=== PATIENT | male | born 1955 | race Caucasian/White ===

== ENCOUNTER 2019-02-22 05:30 | Day surgery (SDC) | payer OTHER ==
[~2019-02-22] VITALS: Ht 160 cm; Wt 104.1 kg
[2019-02-22] MEDS ORDERED: SODIUM CHLORIDE 0.9% 1000ML 1,000 ML IV ONE (05:43)
[2019-02-22 05:59] VITALS: BP 107/73
[2019-02-22] MEDS ORDERED: PROPOFOL 10 MG/ML 20ML VIAL IV ONE (07:14)
[2019-02-22 07:27] VITALS: BP 108/62
[2019-02-22 07:32] VITALS: BP 102/61
[2019-02-22 07:38] VITALS: BP 107/64
[2019-02-22 07:43] VITALS: BP 108/65
== END 2019-02-22 07:50 | disposition home or self-care (01) ==
LOC: ENDO 05:30 → DAH 05:30 → ENDO 07:50
PROVIDERS: ATTEND Internal Medicine
DX: K29.00 Acute gastritis without bleeding (principal); K31.6 Fistula of stomach and duodenum; K44.9 Diaphragmatic hernia without obstruction or gangrene; M19.90 Unspecified osteoarthritis, unspecified site; Z93.1 Gastrostomy status; Z86.73 Personal history of transient ischemic attack (TIA), and cerebral infarction without residual deficits; Z87.442 Personal history of urinary calculi; Z96.659 Presence of unspecified artificial knee joint; Z79.82 Long term (current) use of aspirin; Z79.899 Other long term (current) drug therapy; Z88.0 Allergy status to penicillin
CPT/HCPCS: 43235; 43999; A4215; A4221; A4222; A4223; A4606; A4615; A4649; A4663; J2704; J7030

== ENCOUNTER → 2019-03-23 | Outpatient (CLI) | payer OTHER ==
[~2019-03-23] MED LIST: ALBUTEROL SULFATE 0.083% 2.5 MG/3 ML INH IH ONE
== END | disposition home or self-care (01) ==
LOC: RESP 09:43
PROVIDERS: ATTEND Internal Medicine
DX: J44.9 Chronic obstructive pulmonary disease, unspecified (principal); Z87.891 Personal history of nicotine dependence
CPT/HCPCS: 94060; 94727; 94729

== ENCOUNTER → 2020-04-09 | Outpatient (CLI) | payer OTHER | END | disposition home or self-care (01) | LOC: RAH 16:22 | PROVIDERS: ATTEND Internal Medicine | DX: M16.0 Bilateral primary osteoarthritis of hip (principal); M19.012 Primary osteoarthritis, left shoulder; M19.011 Primary osteoarthritis, right shoulder; M25.511 Pain in right shoulder; M25.552 Pain in left hip; M25.551 Pain in right hip; M25.512 Pain in left shoulder | CPT/HCPCS: 73030; 73502 ==

== ENCOUNTER → 2020-07-16 | Outpatient (CLI) | payer OTHER ==
[~2020-07-16] VITALS: Ht 7.6 cm; Wt 132.0 kg
== END | disposition home or self-care (01) ==
LOC: DTH 13:11
PROVIDERS: ATTEND Internal Medicine
DX: E66.01 Morbid (severe) obesity due to excess calories (principal); I10 Essential (primary) hypertension; K76.0 Fatty (change of) liver, not elsewhere classified; E78.00 Pure hypercholesterolemia, unspecified; K21.9 Gastro-esophageal reflux disease without esophagitis; G47.33 Obstructive sleep apnea (adult) (pediatric); Z79.899 Other long term (current) drug therapy
CPT/HCPCS: 97802

== ENCOUNTER → 2020-08-20 | Outpatient (CLI) | payer OTHER | END | disposition home or self-care (01) | LOC: DTH 13:23 | PROVIDERS: ATTEND Surgery | DX: E66.01 Morbid (severe) obesity due to excess calories (principal); G47.33 Obstructive sleep apnea (adult) (pediatric); I10 Essential (primary) hypertension; K21.9 Gastro-esophageal reflux disease without esophagitis; E78.00 Pure hypercholesterolemia, unspecified; K76.0 Fatty (change of) liver, not elsewhere classified; F14.11 Cocaine abuse, in remission; E55.9 Vitamin D deficiency, unspecified; R73.01 Impaired fasting glucose | CPT/HCPCS: 97803 ==

== ENCOUNTER → 2020-09-10 | Outpatient (CLI) | payer OTHER | END | disposition home or self-care (01) | LOC: DTH 12:14 | PROVIDERS: ATTEND Surgery | DX: G47.33 Obstructive sleep apnea (adult) (pediatric) (principal); E66.01 Morbid (severe) obesity due to excess calories; M19.91 Primary osteoarthritis, unspecified site; K21.9 Gastro-esophageal reflux disease without esophagitis; E78.00 Pure hypercholesterolemia, unspecified; K76.0 Fatty (change of) liver, not elsewhere classified; F14.11 Cocaine abuse, in remission; E55.9 Vitamin D deficiency, unspecified; R73.01 Impaired fasting glucose | CPT/HCPCS: 97803 ==

== ENCOUNTER 2020-10-26 06:29 | Emergency (ER) | payer OTHER ==
[~2020-10-26] VITALS: Ht 160 cm; Wt 120.7 kg
[~2020-10-26 06:29] MED LIST changes: +AEC81 PO; -ALBUTEROL SULFATE 0.083% 2.5 MG/3 ML INH IH ONE; +FLUO40CA7 PO; +GABA300S PO; +PANT40TA54 PO; +ROSU20TA31 PO; +Vitamin D PO
[2020-10-26 07:19] VITALS: BP 141/64
[2020-10-26 07:46] LABS: BASOPHILS % (AUTO) 0.3 % (0.0-5.0); EOSINOPHILS % (AUTO) 0.5 % (0.0-8.0); HEMATOCRIT 37.7 % (42-54); LYMPHOCYTES % (AUTO) 7.5 % (21.0-51.0); MEAN CORPUSCULAR HEMOGLOBIN 29.8 pg (27.0-33.0); MEAN CORPUSCULAR HGB CONC 32.4 g/dL (32.0-36.0); MEAN CORPUSCULAR VOLUME 92.2 fL (79-99); MONOCYTES % (AUTO) 8.7 % (3.0-13.0); NEUTROPHILS % (AUTO) 82.5 % (40.0-77.0); PLATELET COUNT (AUTO) 264 K/uL (130-400); RED BLOOD CELL COUNT(AUTO) 4.09 MIL/uL (4.50-6.20); RED CELL DISTRIBUTION WIDTH 13.6 % (11.0-15.5); WHITE BLOOD COUNT (AUTO) 15.5 K/uL (4.8-10.8)
[2020-10-26 08:03] LABS: ALBUMIN 2.2 g/dL (3.5-5.0); BILIRUBIN,TOTAL 0.9 mg/dL (0.2-1.0); CREATININE 0.9 mg/dL (0.5-1.5); POTASSIUM 3.8 mmol/L (3.5-5.1); TOTAL PROTEIN, SERUM 7.2 g/dL (6.0-8.3)
[2020-10-26 09:14] VITALS: BP 138/70
[2020-10-26 09:53] VITALS: BP_SYST 158; BP_SYST 160; BP_SYST 174; BP_DIAS 180; BP_DIAS 60; BP_DIAS 62
== END 2020-10-26 09:58 | disposition home or self-care (01) ==
LOC: EDH 06:47
DX: K91.872 Postprocedural seroma of a digestive system organ or structure following a digestive system procedure (principal); E11.9 Type 2 diabetes mellitus without complications; E66.9 Obesity, unspecified; Z88.0 Allergy status to penicillin; Z79.899 Other long term (current) drug therapy; Z68.42 Body mass index [BMI] 45.0-49.9, adult
CPT/HCPCS: 36415; 80053; 83690; 85025

== ENCOUNTER → 2022-04-19 | Outpatient (CLI) | payer OTHER | END | disposition home or self-care (01) | LOC: SLP 20:15 | PROVIDERS: ATTEND Internal Medicine | DX: G47.33 Obstructive sleep apnea (adult) (pediatric) (principal); G47.31 Primary central sleep apnea | CPT/HCPCS: 95810 ==

== ENCOUNTER → 2022-04-22 | Outpatient (CLI) | payer OTHER | END | disposition home or self-care (01) | LOC: SLP 20:13 | PROVIDERS: ATTEND Internal Medicine | DX: G47.33 Obstructive sleep apnea (adult) (pediatric) (principal); G47.31 Primary central sleep apnea | CPT/HCPCS: 95811 ==

== ENCOUNTER → 2022-06-10 | Outpatient (CLI) | payer OTHER ==
[~2022-06-10] MED LIST changes: +IOHEXOL 350 MG/ML 100ML INFUS..BTL IV ONE
== END | disposition home or self-care (01) ==
LOC: RAH 10:20
PROVIDERS: ATTEND Internal Medicine Gastroenterology
DX: K43.9 Ventral hernia without obstruction or gangrene (principal); R10.12 Left upper quadrant pain; Z93.1 Gastrostomy status
CPT/HCPCS: 74170; Q9967

== ENCOUNTER 2023-10-01 13:00 | Inpatient (IN) | payer OTHER ==
[~2023-10-01] VITALS: Ht 160 cm; Wt 81.1 kg
[2023-10-01 11:57] LABS: BASOPHILS # (AUTO) 0.06 K/uL (0.00-0.20); BASOPHILS % (AUTO) 0.7 % (0.0-5.0); EOSINOPHILS # (AUTO) 0.16 K/uL (0.00-0.70); EOSINOPHILS % (AUTO) 1.8 % (0.0-8.0); HEMATOCRIT 46.6 % (42-54); IMMATURE GRANULOCYTE ABSOLUTE 0.03 K/uL (0-1); LYMPHOCYTES # (AUTO) 1.8 K/uL (1.0-4.8); MEAN CORPUSCULAR HEMOGLOBIN 29.4 pg (27.0-33.0); MEAN CORPUSCULAR HGB CONC 32.4 g/dL (32.0-36.0); MEAN CORPUSCULAR VOLUME 90.8 fL (79-99); MONOCYTES # (AUTO) 0.5 K/uL (0.1-1.0); NEUTROPHILS # (AUTO) 6.2 K/uL (1.8-7.7); NEUTROPHILS % (AUTO) 70.2 % (40.0-77.0); PLATELET COUNT (AUTO) 240 K/uL (130-400); RED BLOOD CELL COUNT(AUTO) 5.13 MIL/uL (4.50-6.20); RED CELL DISTRIBUTION WIDTH 13.1 % (11.0-15.5); WHITE BLOOD COUNT (AUTO) 8.8 K/uL (4.8-10.8)
[2023-10-01 12:11] LABS: CREATININE 0.8 mg/dL (0.5-1.3); POTASSIUM 4.9 mmol/L (3.5-5.1)
[~2023-10-01 13:00] MED LIST changes: -AEC81 PO; +FAMO40TA7 PO; -FLUO40CA7 PO; -GABA300S PO; -IOHEXOL 350 MG/ML 100ML INFUS..BTL IV ONE; +ROSU10TA72 PO; -ROSU20TA31 PO; +TAMS-1 PO; -Vitamin D PO
[2023-10-01 13:23] VITALS: BP 126/63; PULSE 52; RESP 18
[2023-10-01] MEDS ORDERED: [UNRECOGNIZED DRUG - OTHER] IL (13:25)
[2023-10-01] MEDS ORDERED: BUPR-93 PO (13:29)
[2023-10-01] MEDS ORDERED: stool softener PO (13:29)
[2023-10-06] VITALS (26 sets, daily range): BP systolic 114–161; BP diastolic 50–77; PULSE 49–71; RESP 14–18; O2SAT 98–99
[2023-10-06] MEDS ORDERED: GLYCOPYRROLATE 0.2 MG/ML 5 ML VIAL ONE (10:02)
[2023-10-06] MEDS ORDERED: PROPOFOL 10 MG/ML 20ML VIAL IV ONE (10:02)
[2023-10-06] MEDS ORDERED: LIDOCAINE PF 100MG/5ML (2%) SYRINGE 5ML ONE (10:02)
[2023-10-06] MEDS ORDERED: MIDAZOLAM HCL 1 MG/ML 2ML VIAL ONE (10:02)
[2023-10-06] MEDS ORDERED: FENTANYL CITRATE PF 50 MCG/1 ML 2ML VIAL ONE (10:03)
[2023-10-06] MEDS ORDERED: ROCURONIUM BROMIDE 10MG/1ML 5ML VL ONE ×3 (10:03→14:18)
[2023-10-06] MEDS: CLINDAMYCIN 900MG/6ML INJ IVPB ONE (10:25)
[2023-10-06] MEDS: BUPIVACAINE/PF 0.25% 30ML VIAL IJ ONE (10:44)
[2023-10-06] MEDS ORDERED: EPHEDRINE SULFATE 50 MG/ML AMPULE ONE (11:01)
[2023-10-06] MEDS ORDERED: NOREPINEPHRINE BITARTRATE 1 MG/1 ML ML IV ONE (11:53)
[2023-10-06] MEDS ORDERED: PHENYLEPHRINE HCL 10 MG/ML 1ML VIAL IV ONE (12:56)
[2023-10-06] MEDS ORDERED: DEXAMETHASONE SOD PHOSPHATE 10MG/ML 1ML VIAL ONE (12:57)
[2023-10-06] MEDS ORDERED: ONDANSETRON 4MG INJ ONE (14:45)
[2023-10-06] MEDS ORDERED: DiphenhydrAMINE HCL 50 MG/ML VIAL ONE (14:48)
[2023-10-06] MEDS ORDERED: PROCHLORPERAZINE 10MG/2ML INJ IV PRN (15:00)
[2023-10-06] MEDS ORDERED: ONDANSETRON 4MG INJ IVP PRN (15:00)
[2023-10-06] MEDS ORDERED: MORPHINE 2 MG SYG IVP PRN (15:00)
[2023-10-06] MEDS ORDERED: KETOROLAC 15MG/ML VIAL (15MG/ML) IV PRN (15:30)
[2023-10-06] MEDS: LACTATED RINGERS 1000ML 1,000 ML IV ONE (16:46)
[2023-10-06] MEDS: CLINDAMYCIN IVPB 900MG/50ML 50 ML IV ONE (16:46)
[2023-10-06] MEDS: HYDROMORPHONE 1 MG INJ ONE (16:47)
[2023-10-06] MEDS: LACTATED RINGERS 1000ML 1,000 ML IV SCH (17:28)
[2023-10-06] MEDS: HYDROCODONE/ACETAMINOPHEN 7.5/325 MG 15 ML UDCUP PO PRN (18:15)
[2023-10-06] MEDS: BUPROPION HCL 150 MG TABLET.SA PO SCH (20:22)
[2023-10-07] VITALS: BP 162/76; PULSE 62; RESP 18
[2023-10-07 00:16] VITALS: PULSE 65; RESP 18; O2SAT 97
[2023-10-07 04:00] VITALS: BP 140/67; PULSE 61; RESP 18
[2023-10-07 07:35] VITALS: BP 164/72; PULSE 54; RESP 20
[2023-10-07 10:30] VITALS: O2SAT 96
[2023-10-07] MEDS: ENOXAPARIN SODIUM 30 MG/0.3 ML SQ SCH (11:45)
[2023-10-07 12:00] VITALS: BP 165/67; PULSE 53; RESP 17
== END 2023-10-07 17:05 | disposition home or self-care (01) | DRG 328 ==
LOC: DAHIP 10-06 07:12 → 4BH 10-06 16:20
PROVIDERS: ADMIT Surgery; ATTEND Surgery
PROC: 0DNW4ZZ Release Peritoneum, Percutaneous Endoscopic Approach (ICD-10-PCS; 2023-10-06)
PROC: 0DJ08ZZ Inspection of Upper Intestinal Tract, Via Natural or Artificial Opening Endoscopic (ICD-10-PCS; 2023-10-06)
PROC: 0DB64ZZ Excision of Stomach, Percutaneous Endoscopic Approach (ICD-10-PCS; principal; 2023-10-06 09:58)
PROC: 0D164ZA Bypass Stomach to Jejunum, Percutaneous Endoscopic Approach (ICD-10-PCS; 2023-10-06 09:58)
DX: K21.9 Gastro-esophageal reflux disease without esophagitis (principal); I10 Essential (primary) hypertension; K66.0 Peritoneal adhesions (postprocedural) (postinfection); J44.9 Chronic obstructive pulmonary disease, unspecified; F41.9 Anxiety disorder, unspecified; F32.A Depression, unspecified; E66.9 Obesity, unspecified; Z68.31 Body mass index [BMI] 31.0-31.9, adult; Z96.653 Presence of artificial knee joint, bilateral; K22.70 Barrett's esophagus without dysplasia; Z86.73 Personal history of transient ischemic attack (TIA), and cerebral infarction without residual deficits; Z98.84 Bariatric surgery status
CPT/HCPCS: 36415; 43235; 80048; 85025; 86850; 86900; 86901; G0378; J1100; J1170; J1200; J1650; J2001; J2250; J2371; J2405; J2704; J3010; J3490; J7030; J7120; A4215; A4221; A4222; A4223; A4600; A4649; A4663; A4930; A6260; C1713; G0168; J0665

== ENCOUNTER → 2023-12-24 | Outpatient (CLI) | payer OTHER ==
[~2023-12-24] MED LIST changes: +BUPR-93 PO; +DIATR MEGLU/DIATRIZOATE SODIUM 30 ML BOTTLE ONE; +[UNRECOGNIZED DRUG - OTHER] IL; +stool softener PO
== END | disposition home or self-care (01) ==
LOC: RAH 08:33
PROVIDERS: ATTEND Internal Medicine Gastroenterology
DX: K21.9 Gastro-esophageal reflux disease without esophagitis (principal); K22.70 Barrett's esophagus without dysplasia; Z98.890 Other specified postprocedural states
CPT/HCPCS: 74240; Q9963

== ENCOUNTER → 2024-11-29 | Outpatient (CLI) | payer OTHER ==
[~2024-11-29] MED LIST changes: -DIATR MEGLU/DIATRIZOATE SODIUM 30 ML BOTTLE ONE; -TAMS-1 PO; +TAMS-55 PO
--- NOTE | 2024-11-29 13:30 | NUR ---
MBSS COMPLETED (OUTPATIENT). Aspiration during the swallow with mixed textures followed by cough response; Deep non-transient penetration during the swallow with mildly thick liquids, moderately thick liquids and pudding followed by throat clears. Recommend NPO, assisted alternate means of nutrition/hydration (e.g., PEG tube placement). DIAGNOSTIC FINDINGS: Pt presented with moderate to severe pharyngeal dysphagia characterized by decreased tongue base retraction; delayed pharyngeal response trigger and decreased hyo-laryngeal elevation/excursion evidenced by premature spillage to valleculae with spillover to pyriform sinuses; residue on base of tongue, valleculae and posterior pharyngeal wall and pooled residue in pyriform sinuses partially cleared with extra dry swallows; resulting in deep non-transient penetration during the swallow with pudding, mildly thick liquids via cup sip and moderately thick liquids via tsp followed by throat clear response; aspiration during the swallow with mixed textures followed by immediate cough response. NOTE: Pt had been complaining of s/s of aspiration. Pt with Hx of dysphagia post CVA 2019 followed by placement and removal of PEG tube. 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 STOVE INSTALLER reviewed results and recommendations with patient. STOVE INSTALLER educated patient on risks and consequences of aspiration. Speech therapy not warranted at this time. All questions answered. Addendum: 11/29/[address]IS LAWSON Amended: Links added.
--- NOTE | 2024-11-29 14:29 | HMCIMG ---
MODIFIED BARIUM SWALLOW W CINE REASON: Dysphagia, unspecified/Feeding difficulties, unspecified/oropharyngeal phas FINDINGS: Fluoroscopic assistance was provided to the speech pathologist while performing examination. For findings and dietary recommendations, refer to speech pathologist's report. FLUORO TIME: 2.5 minutes IMPRESSION: Modified barium swallow as described.
== END | disposition home or self-care (01) ==
LOC: RAH 12:16
PROVIDERS: ATTEND Internal Medicine Gastroenterology
DX: R13.10 Dysphagia, unspecified (principal); R63.30 Feeding difficulties, unspecified; R13.12 Dysphagia, oropharyngeal phase
CPT/HCPCS: 74230; 92611

== ENCOUNTER 2024-12-29 07:29 | Inpatient (IN) | payer OTHER ==
[2024-12-28 14:31] VITALS: BP 134/68; PULSE 49; RESP 16; TEMP 98.4
[2024-12-28 14:37] LABS: IMMATURE GRANULOCYTE ABSOLUTE 0.05 K/uL (0-1); NUCLEATED RED BLOOD CELLS 0.0 % (0.0-0.19); PLATELET COUNT (AUTO) 251 K/uL (130-400); RED BLOOD CELL COUNT(AUTO) 4.53 MIL/uL (4.50-6.20); RED CELL DISTRIBUTION WIDTH 13.2 % (11.0-15.5); WHITE BLOOD COUNT (AUTO) 8.5 K/uL (4.8-10.8)
[2024-12-28 14:42] LABS: CREATININE 0.9 mg/dL (0.5-1.3); GLOMERULAR FILTR. RATE CALC 91.0 mL/min (>90); GLUCOSE,RANDOM 113.0 mg/dL (70-105); SODIUM SERUM 141.0 mmol/L (136-145); UREA NITROGEN, BLOOD 21.0 mg/dL (7-18)
[2024-12-28 14:59] LABS: INR 1.05 (0.85-1.15)
--- NOTE | 2024-12-28 16:30 | NUR ---
RE: EKG EKG RESULTS REPORTED TO DR LOPEZ, NO NEW ORDERS RECEIVED.
[~2024-12-29] VITALS: Ht 160 cm; Wt 67.1 kg
[2024-12-29] VITALS (31 sets, daily range): BP systolic 111–140; BP diastolic 56–70; PULSE 48–82; RESP 12–20; TEMP 97.2–98.4; O2SAT 98
--- NOTE | 2024-12-29 06:29 | EKG ---
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: [id number] : 1955 Requested By: HITESH LUCAS Order Number: [id number] Reading MD: Hitesh Carlos Measurements Intervals [place] Rate: 48 P: 35 NH: 229 QRS: -16 QRSD: 87 T: 31 QT: 423 QTc: 380 Interpretive Statements Sinus bradycardia Borderline prolonged NH interval Borderline ST elevation, anterior leads Possible septal infarct vs lead placement, not present on EKG 10/15/2020 Compared to ECG 10/15/2020 11:25:39 ST (T wave) deviation now present Sinus rhythm no longer present Left-axis deviation no longer present Electronically Signed On 12-30-2024 12:19:53 CDT by Hitesh Carlos Please click the below link to view image of tracing.
[~2024-12-29 07:29] MED LIST changes: +ASPI-1443 PO; -BUPR-93 PO; +ERGO500093 PO; +FLUO40CA49 PO; +FOLI1 PO; +MVIT PO; +TOPI-257 PO; -[UNRECOGNIZED DRUG - OTHER] IL; -stool softener PO
[2024-12-29] MEDS: CLINDAMYCIN IVPB 900MG/50ML 50 ML IV ONE (07:55)
[2024-12-29] MEDS: LACTATED RINGERS 1000ML 1,000 ML IV ONE (08:14)
[2024-12-29] MEDS ORDERED: LIDOCAINE PF 100MG/5ML (2%) SYRINGE 5ML ONE ×2 (08:23→08:25)
[2024-12-29] MEDS ORDERED: SUCCINYLCHOLINE CHLORIDE 20 MG/ML 10 ML VIAL ONE (08:24)
[2024-12-29] MEDS ORDERED: GLYCOPYRROLATE 0.2 MG/ML 5 ML VIAL ONE (08:24)
[2024-12-29] MEDS ORDERED: NEOSTIGMINE METHYLSULFATE 1MG/ML IV ONE (08:24)
[2024-12-29] MEDS: CLINDAMYCIN 900MG/6ML INJ IV ONE (08:30)
[2024-12-29] MEDS ORDERED: ATROPINE 1MG SYG IVP ONE (08:33)
[2024-12-29] MEDS: ENOXAPARIN SODIUM 30 MG/0.3 ML SQ SCH (10:30)
[2024-12-29] MEDS ORDERED: PROCHLORPERAZINE 10MG/2ML INJ IV PRN (10:30)
--- NOTE | 2024-12-29 12:45 | NUR ---
PT ARRIVED TO FLOOR VIA BED. PT AOX4. PT DENIES ANY PAIN AT THE MOMENT. DRESSING PLACE TO PEG TUBE SITE. BLEEDING NOTED. BED POSITION TO LOWEST POSITION CALL LIGHT WITH IN REACH.
--- NOTE | 2024-12-29 13:59 | OP ---
Operative Note: DATE OF PROCEDURE: 12/29/24 SURGEON: HITESH LUCAS MD CARPENTER: [] ANESTHESIA: General and local ANESTHESIOLOGIST/CASTING MACHINE SERVICE OPERATOR[place] [facility] [place] PREOPERATIVE DIAGNOSIS: History of gastric bypass, history of stroke, difficulty with the p.o. intake, aspiration risk, in need of nutritional support POSTOPERATIVE DIAGNOSIS: As above SYNOPSIS: Gastrostomy tube placed surgically after lysis of adhesions with no evidence of complication PROCEDURE: Robotic assisted gastrostomy tube placement into remnant stomach, 16 German with 15 cc balloon ESTIMATED BLOOD LOSS: Minimal, less than 30 cc INDICATIONS: As above DESCRIPTION OF PROCEDURE: After standard precautions and preparations were undertaken a Veress needle and optical trocar were used to enter the abdominal cavity. All other instruments were placed under direct vision. The robotic system was docked in the standard fashion. My partner began passing the EGD scope down into the patient's gastric pouch and through the Clint limb to appropriately allowed me to identify anatomy while I remained at the robotic console. I was able to use this to identify the gastric bypass anatomy and began lysing adhesions to expose the remnant stomach. The EGD demonstrated no signs of obstruction to flow from the esophagus to the gastric pouch to the Clint limb. We identified the Clint limb which was appropriately anastomosis and the jejunal jejunostomy which was also appropriate with no signs of any significant postsurgical abnormality. With the remnant stomach identified stay sutures were placed for allowing for proper handling of the tissue. Monopolar cautery was used to enter into the stomach. This was verified by direct visualization. The gastrostomy tube was passed under the left costal margin through the abdominal wall and into the abdominal cavity. The tube was inserted through the gastrotomy and a series of pursestring sutures were used to fix the tube in place the balloon was inflated to the full 15 cc the tube was tested to ensure easy flow and aspiration. An omental patch was placed around the tube entry site. The rubber/silicone collar around the tube was sutured with nylon suture for stabilization and the case was ended after verifying all instrument counts were correct including needles and sponges. HITESH LUCAS MD Dec 29, 2024 13:59
--- NOTE | 2024-12-29 14:01 | PN ---
GENERAL SURGERY PROGRESS NOTE Date/Time Patient Seen: [ 12/29/2024 at 10:30 a.m.] Problem List: [ ] Interval History: [Postop day 0. Pain tolerable with p.r.n. medication. ] Current Medications Medications (Trade) Dose Ordered Sig/Armando Route Start Time Stop Time Status Last Admin Dose Admin Enoxaparin Sodium (Lovenox) 30 mg Q12H SQ 12/29/24 10:30 01/28/25 10:29 Lactated Ringer's 1,000 ml @ 150 mls/hr Q6H40M IV 12/29/24 10:30 01/28/25 10:29 Physical Examination: GENERAL: [No acute distress.] ABD: [Incisions clean, dry and intact, Dermabond in place Vital Signs (last 8hr) Date Time Temp Pulse Resp B/P (MAP) Pulse Ox O2 Delivery O2 Flow Rate FiO2 12/29/24 12:05 57 15 140/63 99 Nasal Cannula 2.0 12/29/24 11:50 58 16 135/67 99 Nasal Cannula 2.0 12/29/24 11:35 55 16 125/65 100 Nasal Cannula 2.0 12/29/24 11:20 56 17 124/58 100 Nasal Cannula 2.0 12/29/24 11:15 55 16 129/63 100 Nasal Cannula 2.0 12/29/24 11:10 57 16 136/60 100 Nasal Cannula 2.0 12/29/24 11:05 53 15 130/56 100 Nasal Cannula 2.0 12/29/24 11:00 54 15 133/58 100 Nasal Cannula 2.0 12/29/24 10:55 55 18 111/56 100 Nasal Cannula 2.0 12/29/24 10:50 57 18 116/58 100 Nasal Cannula 2.0 12/29/24 10:45 58 15 127/59 100 Nasal Cannula 2.0 12/29/24 10:40 63 18 130/60 100 Nonrebreathing Mask 10.0 100 12/29/24 10:35 65 16 128/58 100 Nonrebreathing Mask 10.0 100 12/29/24 10:30 67 14 125/56 100 Nonrebreathing Mask 10.0 100 12/29/24 10:25 70 12 119/59 100 Nonrebreathing Mask 10.0 100 12/29/24 10:20 97.5 82 12 124/60 100 Nonrebreathing Mask 10.0 100 12/29/24 07:45 97.2 48 16 134/67 99 Room Air Laboratory: [ ] Hematology Labs: Test 12/28/24 14:12 Range/Units White Blood Count 8.5 4.8-10.8 K/uL Red Blood Count 4.53 4.50-6.20 MIL/uL Hemoglobin 14.5 14.0-18.0 g/dL Hematocrit 42.9 42-54 % Mean Corpuscular Volume 94.7 79-99 fL Mean Corpuscular Hemoglobin 32.0 27.0-33.0 pg Mean Corpuscular Hemoglobin Concent 33.8 32.0-36.0 g/dL Red Cell Distribution Width 13.2 11.0-15.5 % Platelet Count 251 130-400 K/uL Mean Platelet Volume 8.8 7.5-10.5 fL Immature Granulocyte % (Auto) 0.6 0-1 % Neutrophils (%) (Auto) 67.3 40.0-77.0 % Lymphocytes (%) (Auto) 23.3 21.0-51.0 % Monocytes (%) (Auto) 5.6 3.0-13.0 % Eosinophils (%) (Auto) 2.6 0.0-8.0 % Basophils (%) (Auto) 0.6 0.0-5.0 % Neutrophils # (Auto) 5.8 1.8-7.7 K/uL Lymphocytes # (Auto) 2.0 1.0-4.8 K/uL Monocytes # (Auto) 0.5 0.1-1.0 K/uL Eosinophils # (Auto) 0.22 0.00-0.70 K/uL Basophils # (Auto) 0.05 0.00-0.20 K/uL Absolute Immature Granulocyte (auto 0.05 0-1 K/uL Nucleated Red Blood Cells 0.0 0.0-0.19 % Chemistry Labs: Test 12/28/24 14:12 Range/Units Sodium Level 141 136-145 mmol/L Potassium Level 4.5 3.5-5.1 mmol/L Chloride Level 106 101-111 mmol/L Carbon Dioxide Level 29 21-32 mmol/L Blood Urea Nitrogen 21 H 7-18 mg/dL Creatinine 0.9 0.5-1.3 mg/dL Glomerular Filtration Rate Calc 91 >90 mL/min Random Glucose 113 H 70-105 mg/dL Total Calcium 8.8 8.5-10.1 mg/dL Coagulation Labs: Test 12/28/24 14:12 Range/Units Prothrombin Time 11.1 9.6-11.6 SEC Prothromb Time International Ratio 1.05 0.85-1.15 Activated Partial Thromboplast Time 28.9 26.3-35.5 SEC Diagnostics / Radiology: [Copy/Paste Echos/Imaging Report here] Impression and Plan: [Plan is for discharge home in the next day or two as long as pain tolerable, patient ambulatory and he has been educated on G-tube use and maintenance. ] PRIETO LUCAS Dec 29, 2024 14:01
[2024-12-29] MEDS ORDERED: DIATR MEGLU/DIATRIZOATE SODIUM 30 ML BOTTLE ONE (14:44)
--- NOTE | 2024-12-29 16:00 | HMCIMG ---
ABD 1VW REASON: Gastrostomy tube placement in remnant stomach, pt with hx of gastric bypass FINDINGS: Patient was given 30 cc of Gastrografin prior to the abdomen x-ray. Single image of the abdomen was obtained. There is a oral contrast seen in the stomach and feeding gastrostomy tube demonstrated no leak of contrast within the abdomen and these into duodenum and upper jejunum. Bowel gas pattern is normal. Bones and soft tissues appear unremarkable. There are no abnormal calcifications. There is no evidence of foreign body. IMPRESSION: 1. 3 feeding gastrostomy tube is in the body of the stomach in satisfactory position with no leak identified..
[2024-12-29] MEDS: LACTATED RINGERS 1000ML 1,000 ML IV SCH (17:14)
[2024-12-30] VITALS (7 sets, daily range): BP systolic 116–167; BP diastolic 56–69; PULSE 49–64; RESP 17–18; TEMP 98–98.5; O2SAT 96–98
[2024-12-30] MEDS: MULTIVITAMIN TABLET PO SCH (09:00)
[2024-12-30] MEDS: ASPIRIN 81 MG EC TAB PO SCH (09:00)
[2024-12-30] MEDS: ERGOCALCIFEROL (VITAMIN D2) 50,000 UNIT CAPSULE PO SCH (09:00)
--- NOTE | 2024-12-30 10:33 | NUR ---
DCP:HOME Pt currently lives with his sps Eugenie Garzon [phone] in their home. Pt does not have any DME, home health, or provider services. Pt states that he is able to complete ADLs independently. PCP is Dr. Martin Pollard and uses [facility] for any RX needs. At [place] pt will want to go home and family can assist with transportation. Addendum: 12/30/24 at 1035 by SAQIB CALDERON SS Amended: Links added.
--- NOTE | 2024-12-30 11:45 | NUR ---
SHEPPARD CATHETER 16 FR INSERTED ASEPTICALLY AT THIS TIME PER MD ORDER DRAINING CLEAR URINE TO COLLECTION BAG.
--- NOTE | 2024-12-30 16:06 | NUR ---
CM NOTE/AMERITA CM spoke to patient and spouse regarding d/c planning. Explained orders for home health to assist with tube feedings. Patient reports he has had tube feedings in the past and feels comfortable administering them himself. Spouse states she can also assist. Patient declined home health services at this time. CM also discussed arrangements for tube feedings. CM obtained RUT for any in network specialty pharmacy. CM verified delivery address: [address] [place] [phone]. CM to fax referral to [facility] and follow up.
--- NOTE | 2024-12-30 16:24 | NUR ---
Nutritional Note: Chart, meds, and labs Reviewed. Pt was seen by as an outpatient by PYRIDINE RECOVERY OPERATOR s/p MBSS 11/29/2024 Recommend NPO, intermediate card tender alternate means of nutrition/hydration (e.g., PEG tube placement). Pt s/p PEG and requiring TF recommendations Estimated energy needs: 1500-1800kcal, 60-70gm pro/day 1500-1800ml H20/day Recommend: -Jevity 1.5 total volume/day 1185ml/24hrs or 5 cans/day to be divided as tolerated with 100ml H20 flush before and after each feeding. Pt with hx of gastric bypass. TF to provide 1775kcal, 76gm/pro day, 900ml with at least 1000ml H20 flush/day. - Electrolyte replacements per protocol -Monitor feeding tolerance, %, wt, and labs -If No BM >3days consider bowel stimulant. -Consider appetite stimulant if intake remains <75%for 3 days. -Schedule outpatient RD f/u for long-term nutrition care. - Notify RD if additional nutrition concerns arise. SEE RD Nutritional Assessment for additional assessment information. Addendum: 12/30/24 at [address] Amended: Links added.
--- NOTE | 2024-12-30 16:30 | NUR ---
SPEECH TRIGGER COMPLETED / DYSPHAGIA Pt IS A 69 Y.O. MALE ADMITTED SECONDARY TO S/P G-TUBE PLACEMENT. Pt HAS A PAST MEDICAL HISTORY SIGNIFICANT FOR DYSPHAGIA. Pt WAS SEEN BY SPEECH THERAPY OUTPATIENT FOR [facility] [place] ON 11/29/2024 WHERE PATIENT PRESENTED WITH ASPIRATION DURING THE SWALLOW WITH MIXED TEXTURES FOLLOWED BY COUGH RESPONSE AND DEEP NON-TRANSIENT PENETRATIONS DURING THE SWALLOW WITH PUDDING AND MILDLY, MODERATELY, AND EXTREMELY THICK LIQUIDS FOLLOWED BY THROAT CLEARS. RECOMMENDATIONS FOR NPO, RETIREMENT ALTERNATE MEANS OF NUTRITION/HYDRATION (e.g. PEG TUBE PLACEMENT) WERE MADE AT THAT TIME. Pt NOW ADMITTED TO HAVE PEG TUBE PLACEMENT. SPEECH THERAPY NOT WARRANTED AT THIS TIME. 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 ALL QUESTIONS ANSWERED. Addendum: 12/30/[address]IS LAWSON Amended: Links added.
--- NOTE | 2024-12-30 17:52 | PN ---
GENERAL SURGERY PROGRESS NOTE Date/Time Patient Seen: [ 12/30/2024 / 1700] Problem List: [ History of gastric bypass, history of stroke, difficulty with the p.o. intake, aspiration risk, in need of nutritional support] Interval History: [Postop day 1. Patient is s/p gastrostomy tube placed surgically after lysis of adhesions. Patient's VSS. Patient is awake and alert and oriented resting in bed. Pain is tolerable with p.r.n. medication. Patient pending the initial tube feedings. Patient has been able to intake small amounts of yogurt and jello without any difficulties. His bilateral breath sounds are clear. Abdomen is soft and not distended. His incisions are dry and intact open to air. G-tube in place without any leaks. Oriented to plan of care plan for discharge in the next 24 hours if tolerating feedings. Patient agreed.] Current Medications Medications (Trade) Dose Ordered Sig/Armando Route Start Time Stop Time Status Last Admin Dose Admin Aspirin (Aspirin 81mg Ec Tab) 81 mg QODAY PO 12/30/24 09:00 01/29/25 08:59 Atorvastatin Calcium (LIPItor 40MG) 40 mg HS PO 12/30/24 21:00 01/29/25 20:59 Enoxaparin Sodium (Lovenox) 30 mg Q12H SQ 12/29/24 10:30 01/28/25 10:29 12/30/24 15:17 30 MG Ergocalciferol (Drisdol) 50,000 unit QWEEK PO 12/30/24 09:00 01/29/25 08:59 Fluoxetine HCl (FLUoxetine HCL 20 MG CAPSULE) 40 mg HS PO 12/30/24 21:00 01/29/25 20:59 Folic Acid (FOLic ACID 1 MG TABLET) 1 mg DAILY PO 12/30/24 09:00 01/29/25 08:59 Lactated Ringer's 1,000 ml @ 100 mls/hr Q10H IV 12/29/24 10:30 01/28/25 10:29 12/30/24 15:18 150 MLS/HR Miscellaneous Medication (Famotidine ) 40 mg HS PO 12/30/24 21:00 12/30/24 07:58 DC Multivitamins Therapeutic (Multivitamin Tablet) 1 tab DAILY PO 12/30/24 09:00 01/29/25 08:59 Pantoprazole Sodium (PROTonix 40MG TAB) 40 mg AM PO 12/30/24 09:00 01/29/25 08:59 Tamsulosin HCl (FloMAX) 0.4 mg HS PO 12/30/24 21:00 01/29/25 20:59 Topiramate (TopaMAX) 25 mg BID PO 12/30/24 09:00 01/29/25 08:59 Physical Examination: GENERAL: [No acute distress.] HEAD: [Normal with no signs of head trauma.] EYES: [PERRLA, EOMI, conjunctiva and sclera normal.] ENT: [Hearing grossly intact, normal oropharynx.] LUNGS: [Clear breath sounds bilaterally.] HEART: [Normal S1 and S2 without mumurs, gallop or rub.] VASC: [Peripheral pulses +2 bilaterally.] ABD: [Bowel sounds normal, soft, nontender, no masses, no organomegaly. No audible bruits. Peg tube in place without any leaks] : [Not examined] LYMPH: [No lymphadenopathy noted.] EXT: [No clubbing, cyanosis or edema.] SKIN: [No rashes or lesions noted.] NEURO: [Awake, alert, and oriented x3. No focal sensory or strength deficits noted.] Vital Signs (last 8hr) Date Time Temp Pulse Resp B/P (MAP) Pulse Ox O2 Delivery O2 Flow Rate FiO2 12/30/24 15:35 98.4 52 17 139/69 97 Room Air 12/30/24 11:38 98.1 49 17 167/69 99 Room Air Laboratory: [ ] Diagnostics / Radiology: [Copy/Paste Echos/Imaging Report here] Impression and Plan: [History of gastric bypass History of CVA, Oropharyngeal dysphagia In need of nutritional support Plan Initiate G-tube feedings. Encourage ambulation Aspiration precautions Plan is for discharge home in the next day or two as long as pain tolerable, patient ambulatory and he has been educated on G-tube use and maintenance. Please call with questions, concerns, and/or change in clinical status. ] KAREN WILSON NP Dec 30, 2024 17:52
[2024-12-30] MEDS ORDERED: NON-FORMULARY MEDICATION 1 EACH (Famotidine 40 MG) PO SCH (21:00)
[2024-12-31] VITALS (8 sets, daily range): BP systolic 61–165; BP diastolic 57–73; PULSE 55–73; RESP 18–20; TEMP 97.7–99.3; O2SAT 97–98
--- NOTE | 2024-12-31 00:49 | NUR ---
NURSING NOTES PATIENT REFUSED FEEDING FOR 2299 STATES "HE'S NOT HUNGRY AND STILL FEELS A LITTLE BIT FULL, I'LL WAIT 'TILL NEXT FEEDING IS DUE". WILL CONTINUE TO MONITOR PATIENT.
[2024-12-31] MEDS ORDERED: PHARMACY COMMUNICATION MISC SCH (03:00)
[2024-12-31] MEDS ORDERED: COMPOUND IV REFRIGERATED 1 EACH IVSOLN MISC PRN (08:30)
--- NOTE | 2024-12-31 10:13 | PN ---
GENERAL SURGERY PROGRESS NOTE Date/Time Patient Seen: [ ] Problem List: [ History of gastric bypass, history of stroke, difficulty with the p.o. intake, aspiration risk, in need of nutritional support] Interval History: [Postop day 1. Patient is s/p gastrostomy tube placed surgically after lysis of adhesions. Patient's VSS. Patient is awake and alert and oriented resting in bed. Pain is tolerable with p.r.n. medication. Patient pending the initial tube feedings. Patient has been able to intake small amounts of yogurt and jello without any difficulties. His bilateral breath sounds are clear. Abdomen is soft and not distended. His incisions are dry and intact open to air. G-tube in place without any leaks. Oriented to plan of care plan for discharge in the next 24 hours if tolerating feedings. Patient agreed.] 12/31/24: No acute events overnight. Patient's VSS. Patient receiving instructions on Gtube feeding. Patient reports having 3-4 bms after morning fe eding. BBS clear. Abd Soft. Plan for discharge in am. Patient agreed. Current Medications Medications (Trade) Dose Ordered Sig/Armando Route Start Time Stop Time Status Last Admin Dose Admin Aspirin (Aspirin 81mg Ec Tab) 81 mg QODAY PO 12/30/24 09:00 01/29/25 08:59 Atorvastatin Calcium (LIPItor 40MG) 40 mg HS PO 12/30/24 21:00 01/29/25 20:59 12/30/24 23:57 40 MG Enoxaparin Sodium (Lovenox) 30 mg Q12H SQ 12/29/24 10:30 01/28/25 10:29 12/31/24 09:42 30 MG Ergocalciferol (Drisdol) 50,000 unit QWEEK PO 12/30/24 09:00 01/29/25 08:59 Fluoxetine HCl (FLUoxetine HCL 20 MG CAPSULE) 40 mg HS PO 12/30/24 21:00 01/29/25 20:59 12/30/24 23:57 40 MG Folic Acid (FOLic ACID 1 MG TABLET) 1 mg DAILY PO 12/30/24 09:00 12/31/24 02:44 DC Folic Acid (FolVITE 5 MG/ML VIAL) 1 mg DAILY IM 12/31/24 09:00 01/30/25 08:59 12/31/24 09:42 1 MG Lactated Ringer's 1,000 ml @ 100 mls/hr Q10H IV 12/29/24 10:30 01/28/25 10:29 12/31/24 02:01 100 MLS/HR Miscellaneous Medication (Famotidine ) 40 mg HS PO 12/30/24 21:00 12/30/24 07:58 DC Multivitamins Therapeutic (Multivitamin Tablet) 1 tab DAILY PO 12/30/24 09:00 01/29/25 08:59 12/31/24 09:42 1 TAB Pantoprazole Sodium (PROTonix 40MG INJ) 40 mg AM IVP 12/31/24 09:00 01/30/25 08:59 12/31/24 09:43 40 MG Pantoprazole Sodium (PROTonix 40MG TAB) 40 mg AM PO 12/30/24 09:00 12/31/24 02:40 DC Pharmacy Profile Note (Pharmacy Communication) 1 each ONCE MISC 12/31/24 03:00 12/31/24 02:48 DC Tamsulosin HCl (FloMAX) 0.4 mg HS PO 12/30/24 21:00 01/29/25 20:59 12/30/24 23:57 0.4 MG Topiramate (TopaMAX) 25 mg BID PO 12/30/24 09:00 01/29/25 08:59 12/31/24 09:42 25 MG Physical Examination: GENERAL: [No acute distress.] HEAD: [Normal with no signs of head trauma.] EYES: [PERRLA, EOMI, conjunctiva and sclera normal.] ENT: [Hearing grossly intact, normal oropharynx.] NECK: [Supple without JVD. There is no tenderness, lymphadenopathy, or masses. No thyromegaly. Normal carotid upstrokes without bruits.] LUNGS: [Clear breath sounds bilaterally. There are right basilar rales one third of the way up the chest. No wheezes, or rhonchi.] HEART: [Normal rate and rhythm. Normal S1 and S2 without mumurs, gallop or rub.] VASC: [Peripheral pulses +2 bilaterally.] ABD: [Bowel sounds normal, soft, nontender, no masses, no organomegaly. No audible bruits.] : [Not examined] LYMPH: [No lymphadenopathy noted.] EXT: [No clubbing, cyanosis or edema.] SKIN: [No rashes or lesions noted.] NEURO: [Awake, alert, and oriented x3. No focal sensory or strength deficits noted.] Vital Signs (last 8hr) Date Time Temp Pulse Resp B/P (MAP) Pulse Ox O2 Delivery O2 Flow Rate FiO2 12/31/24 07:56 97.7 66 18 113/61 97 Room Air 12/31/24 03:58 99.3 65 18 126/64 95 Room Air Laboratory: [ ] Diagnostics / Radiology: [Copy/Paste Echos/Imaging Report here] Impression and Plan: [History of gastric bypass History of CVA, Oropharyngeal dysphagia In need of nutritional support Plan Initiate G-tube feedings. Patient will be requiring Gtube feedings longer that 90 days. He will f/u as outpatient and will be reevaluated. Provide patient and family member instruction on feeding Encourage ambulation Aspiration precautions Plan is for discharge home in the next day or two as long as pain tolerable, patient ambulatory and he has been educated on exterminator helper G-tube use and maintenance. Please call with questions, concerns, and/or change in clinical status. ] KAREN WILSON NP Dec 31, 2024 10:13
--- NOTE | 2024-12-31 13:21 | NUR ---
CM NOTE CALL MADE TO [facility] REP WITH [facility] [phone]. AND STATES DID RECEIVE REFERRAL BUT DOES DID RECEIVE REFERRAL AFTERNOON AND DOES NOT HAVE APPROVAL FOR FEEDINGS YET. , WILL NEED TO FOLLOWUP ON THURSDAY.
--- NOTE | 2024-12-31 16:23 | NUR ---
Nutritional f/u Note: Chart, meds, and labs Reviewed. Pt has not started TF, pt with active diet order for clear liquids. ST recommendations for NPO on 12/30/24. Recommend: -NPO as per OPHTHALMIC ASST and MBSS results -Jevity 1.5 total volume/day 1185ml/24hrs or 5 cans/day to be divided as tolerated with 100ml H20 flush before and after each feeding. Pt with hx of gastric bypass. TF to provide 1775kcal, 76gm/pro day, 900ml with at least 1000ml H20 flush/day. - Electrolyte replacements per protocol -RD to provide further recommendations based on clinical progress. -Monitor feeding tolerance, wt, and labs -If No BM >3days consider bowel stimulant. - Please notify RD if additional nutrition concerns arise. Addendum: 12/31/24 at [address] Amended: Links added.
[2025-01-01] VITALS (7 sets, daily range): BP systolic 106–138; BP diastolic 62–72; PULSE 51–58; RESP 17–20; TEMP 97.7–98.5; O2SAT 98
--- NOTE | 2025-01-01 04:17 | NUR ---
NURSING NOTES Patient refused feeding at 22:30, states "he still feels full and not hungry, will wait for the next feeding at around 05:00." Will continue to monitor patient.
--- NOTE | 2025-01-01 11:25 | PN ---
GENERAL SURGERY PROGRESS NOTE Date/Time Patient Seen: [ ] Problem List: [ History of gastric bypass, history of stroke, difficulty with the p.o. intake, aspiration risk, in need of nutritional support] Interval History: [Postop day 1. Patient is s/p gastrostomy tube placed surgically after lysis of adhesions. Patient's VSS. Patient is awake and alert and oriented resting in bed. Pain is tolerable with p.r.n. medication. Patient pending the initial tube feedings. Patient has been able to intake small amounts of yogurt and jello without any difficulties. His bilateral breath sounds are clear. Abdomen is soft and not distended. His incisions are dry and intact open to air. G-tube in place without any leaks. Oriented to plan of care plan for discharge in the next 24 hours if tolerating feedings. Patient agreed.] 12/31/24: No acute events overnight. Patient's VSS. Patient receiving instructions on Gtube feeding. Patient reports having 3-4 bms after morning fe eding. BBS clear. Abd Soft. Plan for discharge in am. Patient agreed. 01/01/25.Patient is tolerating feedings well. Patient's VSS. Approval for recommended nutrition is pending. Patient reports feeling well. BBS are clear. Abdomen is soft. Flores cath draining clear yellow urine. Patient requesting to have flores removed. He states he has f/u with his urologist on 01/06/25. Will remove in am. Patient agreed. Current Medications Medications (Trade) Dose Ordered Sig/Armando Route Start Time Stop Time Status Last Admin Dose Admin Aspirin (Aspirin 81mg Ec Tab) 81 mg QODAY PO 12/30/24 09:00 01/29/25 08:59 01/01/25 08:53 81 MG Atorvastatin Calcium (LIPItor 40MG) 40 mg HS PO 12/30/24 21:00 01/29/25 20:59 12/31/24 21:30 40 MG Enoxaparin Sodium (Lovenox) 30 mg Q12H SQ 12/29/24 10:30 01/28/25 10:29 01/01/25 08:57 30 MG Ergocalciferol (Drisdol) 50,000 unit QWEEK PO 12/30/24 09:00 01/29/25 08:59 Fluoxetine HCl (FLUoxetine HCL 20 MG CAPSULE) 40 mg HS PO 12/30/24 21:00 01/29/25 20:59 12/31/24 21:30 40 MG Folic Acid (FOLic ACID 1 MG TABLET) 1 mg DAILY PO 12/30/24 09:00 12/31/24 02:44 DC Folic Acid (FolVITE 5 MG/ML VIAL) 1 mg DAILY IM 12/31/24 09:00 01/30/25 08:59 01/01/25 08:57 1 MG Lactated Ringer's 1,000 ml @ 100 mls/hr Q10H IV 12/29/24 10:30 01/28/25 10:29 12/31/24 23:25 100 MLS/HR Miscellaneous Medication (Famotidine ) 40 mg HS PO 12/30/24 21:00 12/30/24 07:58 DC Multivitamins Therapeutic (Multivitamin Tablet) 1 tab DAILY PO 12/30/24 09:00 01/29/25 08:59 01/01/25 08:53 1 TAB Pantoprazole Sodium (PROTonix 40MG INJ) 40 mg AM IVP 12/31/24 09:00 01/30/25 08:59 01/01/25 08:53 40 MG Pantoprazole Sodium (PROTonix 40MG TAB) 40 mg AM PO 12/30/24 09:00 12/31/24 02:40 DC Pharmacy Profile Note (Pharmacy Communication) 1 each ONCE MISC 12/31/24 03:00 12/31/24 02:48 DC Tamsulosin HCl (FloMAX) 0.4 mg HS PO 12/30/24 21:00 01/29/25 20:59 12/31/24 21:30 0.4 MG Topiramate (TopaMAX) 25 mg BID PO 12/30/24 09:00 01/29/25 08:59 01/01/25 08:53 25 MG Physical Examination: GENERAL: [No acute distress.] HEAD: [Normal with no signs of head trauma.] EYES: [PERRLA, EOMI, conjunctiva and sclera normal.] ENT: [Hearing grossly intact, normal oropharynx.] NECK: [Supple without JVD. There is no tenderness, lymphadenopathy, or masses. No thyromegaly. Normal carotid upstrokes without bruits.] LUNGS: [Clear breath sounds bilaterally. There are right basilar rales one third of the way up the chest. No wheezes, or rhonchi.] HEART: [Normal rate and rhythm. Normal S1 and S2 without mumurs, gallop or rub.] VASC: [Peripheral pulses +2 bilaterally.] ABD: [Bowel sounds normal, soft, nontender, no masses, no organomegaly. No audible bruits.] : [Not examined] LYMPH: [No lymphadenopathy noted.] EXT: [No clubbing, cyanosis or edema.] SKIN: [No rashes or lesions noted.] NEURO: [Awake, alert, and oriented x3. No focal sensory or strength deficits no choco.] Vital Signs (last 8hr) Date Time Temp Pulse Resp B/P (MAP) Pulse Ox O2 Delivery O2 Flow Rate FiO2 01/01/25 08:00 97.7 58 18 111/64 97 Room Air 01/01/25 04:00 98.4 51 20 121/69 95 Room Air Laboratory: [ ] Diagnostics / Radiology: [Copy/Paste Echos/Imaging Report here] Impression and Plan: [History of gastric bypass History of CVA, Oropharyngeal dysphagia In need of nutritional support Plan Continue G-tube feedings. Provide patient and family member instruction on feeding Encourage ambulation Aspiration precautions Plan is for discharge home once nutrition is approved. Please call with questions, concerns, and/or change in clinical status. ] KAREN WILSON NP Jan 01, 2025 11:25
--- NOTE | 2025-01-01 21:45 | NUR ---
Patient refused feeding at 21:45PM, states "he still feels full and not hungry, will wait for the next feeding at 05:00." Will continue to monitor patient.
[2025-01-02] VITALS (7 sets, daily range): BP systolic 97–154; BP diastolic 58–73; PULSE 54–67; RESP 18–20; TEMP 98.3–102.3; O2SAT 97–100
--- NOTE | 2025-01-02 07:37 | NUR ---
[facility] NURSE PROVIDED PATIENT WITH FEEDING. JEVITY 1.5 1 CAN 1/2 WITH 100 ML FLUSH BEFORE AND AFTER FEEDING. PATIENT TOLERATED WELL. SHEPPARD WAS D/C WITHOUT COMPLICATIONS. EDUCATION TO PATIENT WAS GIVEN TO LET US KNOW SOON HE VOIDS. WILL CONTINUE TO MONITOR.
--- NOTE | 2025-01-02 13:32 | NUR ---
FEEDING PROVIDED FEEDING TO PATIENT. 0 MLS OF RESDIUAL. FLUSHED 100MLS BEFORE AND AFTER FEEDING. ADMINISTERED 1/2 CAN PER PATIENTS REQUEST. PATIENT TOLERATED WELL.
[2025-01-02] MEDS: HYDROcod/acetaMINOPHEN 7.5/325 MG 15 ML UDCUP PO PRN (18:05)
--- NOTE | 2025-01-02 18:26 | NUR ---
PEG TUBE STOMA CARE PROVIDED. CLEANSED WITH NS. APPLIED 4X4 GAUZE AND SECURED WITH TAPE. PATIENT TOLERATED WELL. PEG TUBE FEEDING WAS ADMINISTERED. PATIENT REQUESTED TO HAVE ONLY 1/2 A CAN. 100 MLS FLUSHED BEFORE AND AFTER. NO RESIDUALS WERE ASPIRATED.
--- NOTE | 2025-01-02 18:41 | NUR ---
SPOKE TO DR. HITESH LUCAS REGARDING PATIENTS BLOOD PRESSURE. PATIENT HAD A FEVER OF 102.3 EARLIER. MEDICATION WAS ADMINISTERED. DR. LUCAS ORDERED A URINE SAMPLE, BLOOD SAMPLE, CHEST X-RAY AND ELECTROLYTES. CBC, CMP. AND CONTINUE TO MONITOR. IS TEACHING WAS GIVEN TO PATIENT. PATIENT VERBALIZED HE HAS BEEN DOING HIS BREATHS THROUGHOUT THE DAY.
[2025-01-02 20:13] LABS: ASPARTATE AMINOTRANSFERASE 11.0 U/L (10-37); CREATININE 0.7 mg/dL (0.5-1.3); GLOMERULAR FILTR. RATE CALC 99.0 mL/min (>90); GLUCOSE,RANDOM 147.0 mg/dL (70-105); SODIUM SERUM 138.0 mmol/L (136-145); TOTAL PROTEIN, SERUM 5.4 g/dL (6.0-8.3); UREA NITROGEN, BLOOD 12.0 mg/dL (7-18)
[2025-01-02 20:50] LABS: APPEARANCE,URINE CLEAR (CLEAR); GLUCOSE, URINE (UA) NEGATIVE (NEGATIVE); LEUKOCYTE ESTERASE ,URINE NEGATIVE Leu/uL (NEGATIVE); NITRATE,URINE NEGATIVE (NEGATIVE); OCCULT BLOOD,URINE NEGATIVE (NEGATIVE)
[2025-01-02 20:53] LABS: ADD UA MICROSCOPIC YES
[2025-01-02 20:54] LABS: SQUAMOUS EPITHELIAL CELL,UR RARE /HPF (0-2)
--- NOTE | 2025-01-02 21:40 | NUR ---
FEEDING PATIENT REFUSED 2139 FEEDING STATES HE FEELS FULL AT THIS TIME, WILL CONTINUE TO MONITOR.
--- NOTE | 2025-01-02 21:54 | PN ---
GENERAL SURGERY PROGRESS NOTE Date/Time Patient Seen: [ ] Problem List: [ History of gastric bypass, history of stroke, difficulty with the p.o. intake, aspiration risk, in need of nutritional support] Interval History: [Postop day 1. Patient is s/p gastrostomy tube placed surgically after lysis of adhesions. Patient's VSS. Patient is awake and alert and oriented resting in bed. Pain is tolerable with p.r.n. medication. Patient pending the initial tube feedings. Patient has been able to intake small amounts of yogurt and jello without any difficulties. His bilateral breath sounds are clear. Abdomen is soft and not distended. His incisions are dry and intact open to air. G-tube in place without any leaks. Oriented to plan of care plan for discharge in the next 24 hours if tolerating feedings. Patient agreed.] 12/31/24: No acute events overnight. Patient's VSS. Patient receiving instructions on Gtube feeding. Patient reports having 3-4 bms after morning fe eding. BBS clear. Abd Soft. Plan for discharge in am. Patient agreed. 01/01/25.Patient is tolerating feedings well. Patient's VSS. Approval for recommended nutrition is pending. Patient reports feeling well. BBS are clear. Abdomen is soft. Flores cath draining clear yellow urine. Patient requesting to have flores removed. He states he has f/u with his urologist on 01/06/25. Will remove in am. Patient agreed. 01/02/25: Patient had fever 102 last night. BPs increased. Patient reports feeling well. He was able to void after flores catheter was removed. He denies having any dysuria. He is tolerating gtube feeding well but states he gets full quickly and has had to skip some meals. Current Medications Medications (Trade) Dose Ordered Sig/Armando Route Start Time Stop Time Status Last Admin Dose Admin Aspirin (Aspirin 81mg Ec Tab) 81 mg QODAY PO 12/30/24 09:00 01/29/25 08:59 01/02/25 08:49 81 MG Atorvastatin Calcium (LIPItor 40MG) 40 mg HS PO 12/30/24 21:00 01/29/25 20:59 01/02/25 20:18 40 MG Enoxaparin Sodium (Lovenox) 30 mg Q12H SQ 12/29/24 10:30 01/28/25 10:29 01/02/25 11:17 30 MG Ergocalciferol (Drisdol) 50,000 unit QWEEK PO 12/30/24 09:00 01/29/25 08:59 01/02/25 08:49 50,000 UNIT Fluoxetine HCl (FLUoxetine HCL 20 MG CAPSULE) 40 mg HS PO 12/30/24 21:00 01/29/25 20:59 01/02/25 20:18 40 MG Folic Acid (FOLic ACID 1 MG TABLET) 1 mg DAILY PO 12/30/24 09:00 12/31/24 02:44 DC Folic Acid (FolVITE 5 MG/ML VIAL) 1 mg DAILY IM 12/31/24 09:00 01/30/25 08:59 01/02/25 11:17 1 MG Lactated Ringer's 1,000 ml @ 100 mls/hr Q10H IV 12/29/24 10:30 01/28/25 10:29 01/02/25 18:04 100 MLS/HR Miscellaneous Medication (Famotidine ) 40 mg HS PO 12/30/24 21:00 12/30/24 07:58 DC Multivitamins Therapeutic (Multivitamin Tablet) 1 tab DAILY PO 12/30/24 09:00 01/29/25 08:59 01/02/25 08:49 1 TAB Pantoprazole Sodium (PROTonix 40MG INJ) 40 mg AM IVP 12/31/24 09:00 01/30/25 08:59 01/02/25 08:49 40 MG Pantoprazole Sodium (PROTonix 40MG TAB) 40 mg AM PO 12/30/24 09:00 12/31/24 02:40 DC Pharmacy Profile Note (Pharmacy Communication) 1 each ONCE MISC 12/31/24 03:00 12/31/24 02:48 DC Tamsulosin HCl (FloMAX) 0.4 mg HS PO 12/30/24 21:00 01/29/25 20:59 01/02/25 20:17 0.4 MG Topiramate (TopaMAX) 25 mg BID PO 12/30/24 09:00 01/29/25 08:59 01/02/25 20:18 25 MG Physical Examination: GENERAL: [No acute distress.] HEAD: [Normal with no signs of head trauma.] EYES: [PERRLA, EOMI, conjunctiva and sclera normal.] ENT: [Hearing grossly intact, normal oropharynx.] LUNGS: [Clear breath sounds bilaterally. ] HEART: [Normal rate and rhythm. VASC: [Peripheral pulses +2 bilaterally.] ABD: [Bowel sounds normal, soft, nontender, no masses, no organomegaly. G-tube in place.] : [Not examined] LYMPH: [No lymphadenopathy noted.] EXT: [No clubbing, cyanosis or edema.] SKIN: [No rashes or lesions noted.] NEURO: [Awake, alert, and oriented x3. No focal sensory or strength deficits no choco.] Vital Signs (last 8hr) Date Time Temp Pulse Resp B/P (MAP) Pulse Ox O2 Delivery O2 Flow Rate FiO2 01/02/25 20:00 98.8 63 18 97/58 100 Room Air 01/02/25 16:00 102.4 67 20 154/73 97 Room Air Laboratory: [ ] Chemistry Labs: Test 01/02/25 19:47 Range/Units Sodium Level 138 136-145 mmol/L Potassium Level 3.3 L 3.5-5.1 mmol/L Chloride Level 106 101-111 mmol/L Carbon Dioxide Level 28 21-32 mmol/L Blood Urea Nitrogen 12 7-18 mg/dL Creatinine 0.7 0.5-1.3 mg/dL Glomerular Filtration Rate Calc 99 >90 mL/min Random Glucose 147 H 70-105 mg/dL Total Calcium 8.0 L 8.5-10.1 mg/dL Total Bilirubin 0.5 0.2-1.0 mg/dL Aspartate Amino Transf (AST/SGOT) 11 10-37 U/L Alanine Aminotransferase (ALT/SGPT) 15 12-78 U/L Alkaline Phosphatase 63 50-136 U/L Total Protein 5.4 L 6.0-8.3 g/dL Albumin 2.1 L 3.5-5.0 g/dL Diagnostics / Radiology: [Copy/Paste Echos/Imaging Report here] Impression and Plan: [Fever History of gastric bypass History of CVA, Oropharyngeal dysphagia In need of nutritional support Plan Continue G-tube feedings. Repeat cbc, cmp and cxray, ua Provide patient and family member instruction on feeding Encourage ambulation Aspiration precautions Plan is for discharge home pending labs and cxr evaluation and if afebrile. . Please call with questions, concerns, and/or change in clinical status. ] KAREN WILSON NP Jan 02, 2025 21:54
[2025-01-02 22:12] LABS: IMMATURE GRANULOCYTE ABSOLUTE 0.03 K/uL (0-1); NUCLEATED RED BLOOD CELLS 0.0 % (0.0-0.19); PLATELET COUNT (AUTO) 185 K/uL (130-400); RED BLOOD CELL COUNT(AUTO) 3.92 MIL/uL (4.50-6.20); RED CELL DISTRIBUTION WIDTH 12.9 % (11.0-15.5); WHITE BLOOD COUNT (AUTO) 11.7 K/uL (4.8-10.8)
--- NOTE | 2025-01-02 22:51 | NUR ---
MADE DR HITESH LUCAS AWARE POTASSIUM 3.3, VERBAL ORDER GIVEN FOR PROTOCOL AND CARRIED OUT.
[2025-01-02] MEDS ORDERED: PoTASSium chloRIDE 20MEQ ER 20 MEQ ERTAB PO PRN (23:00)
--- NOTE | 2025-01-02 23:18 | HMCIMG ---
EXAM: CR Chest, 1 view CLINICAL HISTORY: Rule out atelectasis. COMPARISON: None provided. FINDINGS: The lungs show no infiltrates or other acute findings. No pleural effusion or pneumothorax. The cardiomediastinal silhouette is within normal limits. No acute osseous abnormality. IMPRESSION: No acute cardiopulmonary process or significant atelectasis is evident. /[place]
[2025-01-02] MEDS: PoTASSium chl 10% ELIXIR 20MEQ 20 MEQ/15 ML UDCUP PO PRN (23:32)
[2025-01-03] VITALS (8 sets, daily range): BP systolic 95–107; BP diastolic 52–58; PULSE 55–65; RESP 17–20; TEMP 97.5–98.8; O2SAT 94
--- NOTE | 2025-01-03 12:12 | PN ---
GENERAL SURGERY PROGRESS NOTE Date/Time Patient Seen: [ ] Problem List: [ History of gastric bypass, history of stroke, difficulty with the p.o. intake, aspiration risk, in need of nutritional support] Interval History: [Postop day 1. Patient is s/p gastrostomy tube placed surgically after lysis of adhesions. Patient's VSS. Patient is awake and alert and oriented resting in bed. Pain is tolerable with p.r.n. medication. Patient pending the initial tube feedings. Patient has been able to intake small amounts of yogurt and jello without any difficulties. His bilateral breath sounds are clear. Abdomen is soft and not distended. His incisions are dry and intact open to air. G-tube in place without any leaks. Oriented to plan of care plan for discharge in the next 24 hours if tolerating feedings. Patient agreed.] 12/31/24: No acute events overnight. Patient's VSS. Patient receiving instructions on Gtube feeding. Patient reports having 3-4 bms after morning fe eding. BBS clear. Abd Soft. Plan for discharge in am. Patient agreed. 01/01/25.Patient is tolerating feedings well. Patient's VSS. Approval for recommended nutrition is pending. Patient reports feeling well. BBS are clear. Abdomen is soft. Flores cath draining clear yellow urine. Patient requesting to have flores removed. He states he has f/u with his urologist on 01/06/25. Will remove in am. Patient agreed. 01/02/25: Patient had fever 102 last night. BPs increased. Patient reports feeling well. He was able to void after flores catheter was removed. He denies having any dysuria. He is tolerating gtube feeding well but states he gets full quickly and has had to skip some meals. 01/03/25: WBC 11.7, hemoglobin 12.5, platelets 185. Chemistry significant for potassium of 3.3, glucose 147, calcium 8.0, total protein 5.4, albumin 2.1. UA negative. Chest x-ray negative for any acute cardiopulmonary process or significant atelectasis is evident. Patient's last elevated temp of 102.4 at 1600 yesterday. Nursing report patient began leaking around PEG tube with morning feeding. Peg tube assess and in place. Patient denies having any discomforts. Bilateral breath sounds are clear. Abdomen is soft and not distended, and nontender. Active bowel sounds are present. We will re-attempt to do slow feeding as tolerated. Patient agreed. Current Medications Medications (Trade) Dose Ordered Sig/Armando Route Start Time Stop Time Status Last Admin Dose Admin Aspirin (Aspirin 81mg Ec Tab) 81 mg QODAY PO 12/30/24 09:00 01/29/25 08:59 01/03/25 08:25 81 MG Atorvastatin Calcium (LIPItor 40MG) 40 mg HS PO 12/30/24 21:00 01/29/25 20:59 01/02/25 20:18 40 MG Enoxaparin Sodium (Lovenox) 30 mg Q12H SQ 12/29/24 10:30 01/28/25 10:29 01/03/25 11:04 30 MG Ergocalciferol (Drisdol) 50,000 unit QWEEK PO 12/30/24 09:00 01/29/25 08:59 01/02/25 08:49 50,000 UNIT Fluoxetine HCl (FLUoxetine HCL 20 MG CAPSULE) 40 mg HS PO 12/30/24 21:00 01/29/25 20:59 01/02/25 20:18 40 MG Folic Acid (FOLic ACID 1 MG TABLET) 1 mg DAILY PO 12/30/24 09:00 12/31/24 02:44 DC Folic Acid (FolVITE 5 MG/ML VIAL) 1 mg DAILY IM 12/31/24 09:00 01/30/25 08:59 01/03/25 08:31 1 MG Lactated Ringer's 1,000 ml @ 100 mls/hr Q10H IV 12/29/24 10:30 01/28/25 10:29 01/03/25 04:18 100 MLS/HR Miscellaneous Medication (Famotidine ) 40 mg HS PO 12/30/24 21:00 12/30/24 07:58 DC Multivitamins Therapeutic (Multivitamin Tablet) 1 tab DAILY PO 12/30/24 09:00 01/29/25 08:59 01/03/25 08:25 1 TAB Pantoprazole Sodium (PROTonix 40MG INJ) 40 mg AM IVP 12/31/24 09:00 01/30/25 08:59 01/03/25 08:25 40 MG Pantoprazole Sodium (PROTonix 40MG TAB) 40 mg AM PO 12/30/24 09:00 12/31/24 02:40 DC Pharmacy Profile Note (Pharmacy Communication) 1 each ONCE MISC 12/31/24 03:00 12/31/24 02:48 DC Tamsulosin HCl (FloMAX) 0.4 mg HS PO 12/30/24 21:00 01/29/25 20:59 01/02/25 20:17 0.4 MG Topiramate (TopaMAX) 25 mg BID PO 12/30/24 09:00 01/29/25 08:59 01/03/25 08:26 25 MG Physical Examination: GENERAL: [No acute distress.] HEAD: [Normal with no signs of head trauma.] EYES: [PERRLA, EOMI, conjunctiva and sclera normal.] ENT: [Hearing grossly intact, normal oropharynx.] LUNGS: [Clear breath sounds bilaterally. No wheezes, or rhonchi.] HEART: [Normal rate and rhythm. VASC: [Peripheral pulses +2 bilaterally.] ABD: [Bowel sounds normal, soft, nontender, nondistended, no masses, no organom egaly Peg tube in place .] : [Not examined] LYMPH: [No lymphadenopathy noted.] EXT: [No clubbing, cyanosis or edema.] SKIN: [No rashes or lesions noted.] NEURO: [Awake, alert, and oriented x3. No focal sensory or strength deficits noted.] Vital Signs (last 8hr) Date Time Temp Pulse Resp B/P (MAP) Pulse Ox O2 Delivery O2 Flow Rate FiO2 01/03/25 08:00 97.9 55 18 101/58 94 Room Air 21 01/03/25 04:00 97.5 58 18 95/53 95 Room Air Laboratory: [ ] Hematology Labs: Test 01/02/25 22:06 Range/Units White Blood Count 11.7 H 4.8-10.8 K/uL Red Blood Count 3.92 L 4.50-6.20 MIL/uL Hemoglobin 12.5 L 14.0-18.0 g/dL Hematocrit 38.1 L 42-54 % Mean Corpuscular Volume 97.2 79-99 fL Mean Corpuscular Hemoglobin 31.9 27.0-33.0 pg Mean Corpuscular Hemoglobin Concent 32.8 32.0-36.0 g/dL Red Cell Distribution Width 12.9 11.0-15.5 % Platelet Count 185 130-400 K/uL Mean Platelet Volume 8.9 7.5-10.5 fL Immature Granulocyte % (Auto) 0.3 0-1 % Neutrophils (%) (Auto) 84.4 H 40.0-77.0 % Lymphocytes (%) (Auto) 7.5 L 21.0-51.0 % Monocytes (%) (Auto) 7.2 3.0-13.0 % Eosinophils (%) (Auto) 0.3 0.0-8.0 % Basophils (%) (Auto) 0.3 0.0-5.0 % Neutrophils # (Auto) 9.9 H 1.8-7.7 K/uL Lymphocytes # (Auto) 0.9 L 1.0-4.8 K/uL Monocytes # (Auto) 0.9 0.1-1.0 K/uL Eosinophils # (Auto) 0.04 0.00-0.70 K/uL Basophils # (Auto) 0.04 0.00-0.20 K/uL Absolute Immature Granulocyte (auto 0.03 0-1 K/uL Nucleated Red Blood Cells 0.0 0.0-0.19 % White Cell Morphology Comment See comments Chemistry Labs: Test 01/02/25 19:47 Range/Units Sodium Level 138 136-145 mmol/L Potassium Level 3.3 L 3.5-5.1 mmol/L Chloride Level 106 101-111 mmol/L Carbon Dioxide Level 28 21-32 mmol/L Blood Urea Nitrogen 12 7-18 mg/dL Creatinine 0.7 0.5-1.3 mg/dL Glomerular Filtration Rate Calc 99 >90 mL/min Random Glucose 147 H 70-105 mg/dL Total Calcium 8.0 L 8.5-10.1 mg/dL Total Bilirubin 0.5 0.2-1.0 mg/dL Aspartate Amino Transf (AST/SGOT) 11 10-37 U/L Alanine Aminotransferase (ALT/SGPT) 15 12-78 U/L Alkaline Phosphatase 63 50-136 U/L Total Protein 5.4 L 6.0-8.3 g/dL Albumin 2.1 L 3.5-5.0 g/dL Diagnostics / Radiology: [Copy/Paste Echos/Imaging Report here] Impression and Plan: [Fever History of gastric bypass History of CVA, Oropharyngeal dysphagia In need of nutritional support Plan Case discussed with Dr. Retana Blood cultures ordered Continue G-tube feedings. Patient will be requiring Gtube feedings longer that 90 days. He is at high risk for aspiration. He will f/u at as outpatient and will be reevaluated as needed. Please provide patient and family member instruction on feeding Encourage ambulation Aspiration precautions Plan is for discharge home pending labs and cxr evaluation and if afebrile. He will be requiring halfway Gtube feeding and nutrition longer than 90 days. Please call with questions, concerns, and/or change in clinical status. ] KAREN WILSON NP Jan 03, 2025 12:12
[2025-01-03] MEDS: PoTASSium chl 10% ELIXIR 20MEQ 20 MEQ/15 ML UDCUP PO ONE (12:30)
[2025-01-03 12:53] LABS: IMMATURE GRANULOCYTE ABSOLUTE 0.08 K/uL (0-1); NUCLEATED RED BLOOD CELLS 0.0 % (0.0-0.19); PLATELET COUNT (AUTO) 216 K/uL (130-400); RED BLOOD CELL COUNT(AUTO) 3.82 MIL/uL (4.50-6.20); RED CELL DISTRIBUTION WIDTH 13.1 % (11.0-15.5); WHITE BLOOD COUNT (AUTO) 14.1 K/uL (4.8-10.8)
[2025-01-03 12:57] LABS: ASPARTATE AMINOTRANSFERASE 12.0 U/L (10-37); CREATININE 0.8 mg/dL (0.5-1.3); GLOMERULAR FILTR. RATE CALC 95.0 mL/min (>90); GLUCOSE,RANDOM 140.0 mg/dL (70-105); SODIUM SERUM 137.0 mmol/L (136-145); TOTAL PROTEIN, SERUM 5.6 g/dL (6.0-8.3); UREA NITROGEN, BLOOD 17.0 mg/dL (7-18)
--- NOTE | 2025-01-03 14:20 | HMCIMG ---
EXAM: CR Abdomen, 2 View. CLINICAL HISTORY: PEG TUBE PLACEMENT COMPARISON: X-ray KUB 12/29/2024 FINDINGS: BOWEL: The bowel gas pattern is within normal limits. PERITONEUM/SOFT TISSUES: No free air evident. No pathologic appearing calcification. Percutaneous gastrostomy tube tip not well evaluated due to lack of injected contrast BONES: No acute osseous abnormality. IMPRESSION: The bowel gas pattern is within normal limits. /[place]
--- NOTE | 2025-01-03 15:03 | NUR ---
Nutritional f/u Note: Chart, meds, and labs Reviewed. Pt reports tolerating gtube feeding well but states he gets full quickly and has had to skip some meals. Pt states he can tolerate around 3-4 cans/day. Pt w/ hx of gastric bypass in 2022 as per pt. Pt stated he would not tolerate 5 cans/day. Recommend: -change TF formula to two ari formula to better meet pt energy and tolerance needs: TF to provide 1900kcal, 80gm pro/day 664total free h20/day. -TF 830-948ml/day to divided by pt as tolerated. Recommended is can q 4 hrs . -H20 flush 100ml h20 flush before and after each feeding. -RD to provide further recommendations based on clinical progress. -Monitor feeding tolerance, %, wt, and labs -If No BM >3days consider bowel stimulant. - Please notify RD if additional nutrition concerns arise. Addendum: 01/03/25 at [address] Amended: Links added.
[2025-01-04 00:15] VITALS: BP 99/53; PULSE 63; RESP 18; TEMP 99.1
[2025-01-04 07:56] VITALS: BP 96/60; PULSE 51; RESP 18; TEMP 97.6
[2025-01-04 08:00] VITALS: O2SAT 97
--- NOTE | 2025-01-04 10:22 | NUR ---
PROVIDER NOTIFICATION: TUBE SITE LEAKING, QUESTION REGARDING PO INTAKE During morning assessment, G-tube site dressing noted soaked. Leaking noted around insertion site. Skin is erythema noted. Placement verified with air bolus. No residual noted. Patient also reports that he is able to have thick, pudding type foods. Phone call placed to [place] digestive specialist to clarify. Pending reponse.
--- NOTE | 2025-01-04 10:54 | PN ---
GENERAL SURGERY PROGRESS NOTE Date/Time Patient Seen: [ ] Problem List: [ History of gastric bypass, history of stroke, difficulty with the p.o. intake, aspiration risk, in need of nutritional support] Interval History: [Postop day 1. Patient is s/p gastrostomy tube placed surgically after lysis of adhesions. Patient's VSS. Patient is awake and alert and oriented resting in bed. Pain is tolerable with p.r.n. medication. Patient pending the initial tube feedings. Patient has been able to intake small amounts of yogurt and jello without any difficulties. His bilateral breath sounds are clear. Abdomen is soft and not distended. His incisions are dry and intact open to air. G-tube in place without any leaks. Oriented to plan of care plan for discharge in the next 24 hours if tolerating feedings. Patient agreed.] 12/31/24: No acute events overnight. Patient's VSS. Patient receiving instructions on Gtube feeding. Patient reports having 3-4 bms after morning fe eding. BBS clear. Abd Soft. Plan for discharge in am. Patient agreed. 01/01/25.Patient is tolerating feedings well. Patient's VSS. Approval for recommended nutrition is pending. Patient reports feeling well. BBS are clear. Abdomen is soft. Flores cath draining clear yellow urine. Patient requesting to have flores removed. He states he has f/u with his urologist on 01/06/25. Will remove in am. Patient agreed. 01/02/25: Patient had fever 102 last night. BPs increased. Patient reports feeling well. He was able to void after flores catheter was removed. He denies having any dysuria. He is tolerating gtube feeding well but states he gets full quickly and has had to skip some meals. 01/03/25: WBC 11.7, hemoglobin 12.5, platelets 185. Chemistry significant for potassium of 3.3, glucose 147, calcium 8.0, total protein 5.4, albumin 2.1. UA negative. Chest x-ray negative for any acute cardiopulmonary process or significant atelectasis is evident. Patient's last elevated temp of 102.4 at 1600 yesterday. Nursing report patient began leaking around PEG tube with morning feeding. Peg tube assess and in place. Patient denies having any discomforts. Bilateral breath sounds are clear. Abdomen is soft and not distended, and nontender. Active bowel sounds are present. We will re-attempt to do slow feeding as tolerated. Patient agreed. 01/04/25: Patient has remained afebrile for more than 30 hours. His vital signs are stable. Blood cultures with no growth after 24 hours. Patient was able to tolerate 200 mL of water and 118 mL of tube feeding this morning. Per nurse patient had very small amount of leaking at last feed but patient was able to tolerate entire feeding amount this morning. No c/o nausea or vomiting. On exam patient reports feeling well and denies any abdominal pain, or nausea. His feeding changed to two ari and reports tolerating it well. Plan to repeat kub with contrast to assess peg tube placement. He and spouse agree. Current Medications Medications (Trade) Dose Ordered Sig/Armando Route Start Time Stop Time Status Last Admin Dose Admin Aspirin (Aspirin 81mg Ec Tab) 81 mg QODAY PO 12/30/24 09:00 01/29/25 08:59 01/03/25 08:25 81 MG Atorvastatin Calcium (LIPItor 40MG) 40 mg HS PO 12/30/24 21:00 01/29/25 20:59 01/03/25 20:55 40 MG Enoxaparin Sodium (Lovenox) 30 mg Q12H SQ 12/29/24 10:30 01/28/25 10:29 01/04/25 09:13 30 MG Ergocalciferol (Drisdol) 50,000 unit QWEEK PO 12/30/24 09:00 01/29/25 08:59 01/02/25 08:49 50,000 UNIT Fluoxetine HCl (FLUoxetine HCL 20 MG CAPSULE) 40 mg HS PO 12/30/24 21:00 01/29/25 20:59 01/03/25 20:55 40 MG Folic Acid (FOLic ACID 1 MG TABLET) 1 mg DAILY PO 12/30/24 09:00 12/31/24 02:44 DC Folic Acid (FolVITE 5 MG/ML VIAL) 1 mg DAILY IM 12/31/24 09:00 01/30/25 08:59 01/03/25 08:31 1 MG Lactated Ringer's 1,000 ml @ 100 mls/hr Q10H IV 12/29/24 10:30 01/28/25 10:29 01/04/25 01:53 100 MLS/HR Miscellaneous Medication (Famotidine ) 40 mg HS PO 12/30/24 21:00 12/30/24 07:58 DC Multivitamins Therapeutic (Multivitamin Tablet) 1 tab DAILY PO 12/30/24 09:00 01/29/25 08:59 01/04/25 09:13 1 TAB Pantoprazole Sodium (PROTonix 40MG INJ) 40 mg AM IVP 12/31/24 09:00 01/30/25 08:59 01/04/25 09:12 40 MG Pantoprazole Sodium (PROTonix 40MG TAB) 40 mg AM PO 12/30/24 09:00 12/31/24 02:40 DC Pharmacy Profile Note (Pharmacy Communication) 1 each ONCE MISC 12/31/24 03:00 12/31/24 02:48 DC Tamsulosin HCl (FloMAX) 0.4 mg HS PO 12/30/24 21:00 01/29/25 20:59 01/03/25 20:55 0.4 MG Topiramate (TopaMAX) 25 mg BID PO 12/30/24 09:00 01/29/25 08:59 01/04/25 09:13 25 MG Physical Examination: GENERAL: [No acute distress.] HEAD: [Normal with no signs of head trauma.] EYES: [PERRLA, EOMI, conjunctiva and sclera normal.] ENT: [Hearing grossly intact, normal oropharynx.] NECK: [Supple without JVD. There is no tenderness, lymphadenopathy, or masses. No thyromegaly. Normal carotid upstrokes without bruits.] LUNGS: [Clear breath sounds bilaterally. There are right basilar rales one third of the way up the chest. No wheezes, or rhonchi.] HEART: [Normal rate and rhythm. Normal S1 and S2 without mumurs, gallop or rub.] VASC: [Peripheral pulses +2 bilaterally.] ABD: [Bowel sounds normal, soft, nontender, no masses, no organomegaly. No audible bruits.] : [Not examined] LYMPH: [No lymphadenopathy noted.] EXT: [No clubbing, cyanosis or edema.] SKIN: [No rashes or lesions noted.] NEURO: [Awake, alert, and oriented x3. No focal sensory or strength deficits noted.] Vital Signs (last 8hr) Date Time Temp Pulse Resp B/P (MAP) Pulse Ox O2 Delivery O2 Flow Rate FiO2 01/04/25 08:00 97 Room Air* 0 21 01/04/25 07:56 97.5 51 18 96/60 97 Room Air Laboratory: [ ] Hematology Labs: Test 01/03/25 12:19 01/02/25 22:06 Range/Units White Blood Count 14.1 H 4.8-10.8 K/uL Red Blood Count 3.82 L 4.50-6.20 MIL/uL Hemoglobin 12.0 L 14.0-18.0 g/dL Hematocrit 36.5 L 42-54 % Mean Corpuscular Volume 95.5 79-99 fL Mean Corpuscular Hemoglobin 31.4 27.0-33.0 pg Mean Corpuscular Hemoglobin Concent 32.9 32.0-36.0 g/dL Red Cell Distribution Width 13.1 11.0-15.5 % Platelet Count 216 130-400 K/uL Mean Platelet Volume 9.1 7.5-10.5 fL Immature Granulocyte % (Auto) 0.6 0-1 % Neutrophils (%) (Auto) 84.7 H 40.0-77.0 % Lymphocytes (%) (Auto) 7.0 L 21.0-51.0 % Monocytes (%) (Auto) 7.1 3.0-13.0 % Eosinophils (%) (Auto) 0.4 0.0-8.0 % Basophils (%) (Auto) 0.2 0.0-5.0 % Neutrophils # (Auto) 11.9 H 1.8-7.7 K/uL Lymphocytes # (Auto) 1.0 1.0-4.8 K/uL Monocytes # (Auto) 1.0 0.1-1.0 K/uL Eosinophils # (Auto) 0.06 0.00-0.70 K/uL Basophils # (Auto) 0.03 0.00-0.20 K/uL Absolute Immature Granulocyte (auto 0.08 0-1 K/uL Nucleated Red Blood Cells 0.0 0.0-0.19 % White Cell Morphology Comment See comments Chemistry Labs: Test 01/03/25 12:19 Range/Units Sodium Level 137 136-145 mmol/L Potassium Level 3.7 3.5-5.1 mmol/L Chloride Level 103 101-111 mmol/L Carbon Dioxide Level 30 21-32 mmol/L Blood Urea Nitrogen 17 7-18 mg/dL Creatinine 0.8 0.5-1.3 mg/dL Glomerular Filtration Rate Calc 95 >90 mL/min Random Glucose 140 H 70-105 mg/dL Total Calcium 8.3 L 8.5-10.1 mg/dL Total Bilirubin 0.7 # 0.2-1.0 mg/dL Aspartate Amino Transf (AST/SGOT) 12 10-37 U/L Alanine Aminotransferase (ALT/SGPT) 15 12-78 U/L Alkaline Phosphatase 61 50-136 U/L Total Protein 5.6 L 6.0-8.3 g/dL Albumin 1.9 L 3.5-5.0 g/dL Diagnostics / Radiology: [Copy/Paste Echos/Imaging Report here] Impression and Plan: [Fever History of gastric bypass History of CVA, Oropharyngeal dysphagia In need of nutritional support Plan Case discussed with Dr. Retana Negative BC at over 24 hours WBC trending down. Patient afebrile. Will repeat KUB with contrast via peg tube Continue G-tube feedings. Patient will be requiring G-tube feeding longer that 90 days. He is at high risk for aspiration. He will f/u at as outpatient and will be reevaluated as needed. Please provide patient and family member instruction on feeding. 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 Please call with questions, concerns, and/or change in clinical status. ] KAREN WILSON NP Jan 04, 2025 10:54
[2025-01-04 11:12] LABS: IMMATURE GRANULOCYTE ABSOLUTE 0.09 K/uL (0-1); NUCLEATED RED BLOOD CELLS 0.0 % (0.0-0.19); PLATELET COUNT (AUTO) 226 K/uL (130-400); RED BLOOD CELL COUNT(AUTO) 3.72 MIL/uL (4.50-6.20); RED CELL DISTRIBUTION WIDTH 13.0 % (11.0-15.5); WHITE BLOOD COUNT (AUTO) 13.6 K/uL (4.8-10.8)
[2025-01-04 11:40] VITALS: BP 120/63; PULSE 52; RESP 18; TEMP 97.8
--- NOTE | 2025-01-04 12:23 | NUR ---
Discharge Update: Change in formula for peg tube feeding. New info e-mailed to
--- NOTE | 2025-01-04 12:25 | NUR ---
Discharge Update: Formula for peg tube feeding changed. New information sent to Terry at [facility]. Pending insurance authorization.
[2025-01-04 15:25] VITALS: BP 106/58; PULSE 66; RESP 18; TEMP 98.1
[2025-01-04] MEDS ORDERED: DIATR MEGLU/DIATRIZOATE SODIUM 30 ML BOTTLE ONE (15:31)
--- NOTE | 2025-01-04 16:13 | HMCIMG ---
EXAM: CR Abdomen, 1 View. CLINICAL HISTORY: Peg tube leaking COMPARISON: None provided. FINDINGS: BOWEL: The bowel gas pattern is within normal limits. Contrast is injected via the gastrostomy tube and contrast enters the stomach. There is no contrast extravasation. PERITONEUM/SOFT TISSUES: No free air evident. No pathologic appearing calcification. BONES: No acute osseous abnormality. IMPRESSION: Satisfactory position of the gastrostomy tube. No bowel obstruction. /[place]
[2025-01-04 20:00] VITALS: BP 111/70; PULSE 63; RESP 17; TEMP 98.2; O2SAT 96
--- NOTE | 2025-01-04 21:42 | NUR ---
Pt. refusing feeding @ this time.
[2025-01-05] VITALS (8 sets, daily range): BP systolic 106–126; BP diastolic 54–69; PULSE 50–60; RESP 16–18; TEMP 97.8–98.3; O2SAT 97–98
--- NOTE | 2025-01-05 12:54 | NUR ---
patient refusing bed alarm. refusal form signed.
--- NOTE | 2025-01-05 15:16 | PN ---
GENERAL SURGERY PROGRESS NOTE Date/Time Patient Seen: [ ] Problem List: [ History of gastric bypass, history of stroke, difficulty with the p.o. intake, aspiration risk, in need of nutritional support] Interval History: [Postop day 1. Patient is s/p gastrostomy tube placed surgically after lysis of adhesions. Patient's VSS. Patient is awake and alert and oriented resting in bed. Pain is tolerable with p.r.n. medication. Patient pending the initial tube feedings. Patient has been able to intake small amounts of yogurt and jello without any difficulties. His bilateral breath sounds are clear. Abdomen is soft and not distended. His incisions are dry and intact open to air. G-tube in place without any leaks. Oriented to plan of care plan for discharge in the next 24 hours if tolerating feedings. Patient agreed.] 12/31/24: No acute events overnight. Patient's VSS. Patient receiving instructions on Gtube feeding. Patient reports having 3-4 bms after morning fe eding. BBS clear. Abd Soft. Plan for discharge in am. Patient agreed. 01/01/25.Patient is tolerating feedings well. Patient's VSS. Approval for recommended nutrition is pending. Patient reports feeling well. BBS are clear. Abdomen is soft. Flores cath draining clear yellow urine. Patient requesting to have flores removed. He states he has f/u with his urologist on 01/06/25. Will remove in am. Patient agreed. 01/02/25: Patient had fever 102 last night. BPs increased. Patient reports feeling well. He was able to void after flores catheter was removed. He denies having any dysuria. He is tolerating gtube feeding well but states he gets full quickly and has had to skip some meals. 01/03/25: WBC 11.7, hemoglobin 12.5, platelets 185. Chemistry significant for potassium of 3.3, glucose 147, calcium 8.0, total protein 5.4, albumin 2.1. UA negative. Chest x-ray negative for any acute cardiopulmonary process or significant atelectasis is evident. Patient's last elevated temp of 102.4 at 1600 yesterday. Nursing report patient began leaking around PEG tube with morning feeding. Peg tube assess and in place. Patient denies having any discomforts. Bilateral breath sounds are clear. Abdomen is soft and not distended, and nontender. Active bowel sounds are present. We will re-attempt to do slow feeding as tolerated. Patient agreed. 01/04/25: Patient has remained afebrile for more than 30 hours. His vital signs are stable. Blood cultures with no growth after 24 hours. Patient was able to tolerate 200 mL of water and 118 mL of tube feeding this morning. Per nurse patient had very small amount of leaking at last feed but patient was able to tolerate entire feeding amount this morning. No c/o nausea or vomiting. On exam patient reports feeling well and denies any abdominal pain, or nausea. His feeding changed to two ari and reports tolerating it well. Plan to repeat kub with contrast to assess peg tube placement. He and spouse agree. 01/05/25: Patient has remained afebrile. Blood cultures negative after 48 hours. Patient is tolerating TwoCal feedings. KUB with contrast negative for any bowel obstruction peg tube in place. Plan for discharge. Current Medications Medications (Trade) Dose Ordered Sig/Armando Route Start Time Stop Time Status Last Admin Dose Admin Aspirin (Aspirin 81mg Ec Tab) 81 mg QODAY PO 12/30/24 09:00 01/29/25 08:59 01/05/25 09:42 81 MG Atorvastatin Calcium (LIPItor 40MG) 40 mg HS PO 12/30/24 21:00 01/29/25 20:59 01/04/25 21:42 40 MG Enoxaparin Sodium (Lovenox) 30 mg Q12H SQ 12/29/24 10:30 01/28/25 10:29 01/05/25 09:43 30 MG Ergocalciferol (Drisdol) 50,000 unit QWEEK PO 12/30/24 09:00 01/29/25 08:59 01/02/25 08:49 50,000 UNIT Fluoxetine HCl (FLUoxetine HCL 20 MG CAPSULE) 40 mg HS PO 12/30/24 21:00 01/29/25 20:59 01/04/25 21:42 40 MG Folic Acid (FOLic ACID 1 MG TABLET) 1 mg DAILY PO 12/30/24 09:00 12/31/24 02:44 DC Folic Acid (FolVITE 5 MG/ML VIAL) 1 mg DAILY IM 12/31/24 09:00 01/30/25 08:59 01/05/25 09:42 1 MG Lactated Ringer's 1,000 ml @ 100 mls/hr Q10H IV 12/29/24 10:30 01/28/25 10:29 01/05/25 03:07 100 MLS/HR Miscellaneous Medication (Famotidine ) 40 mg HS PO 12/30/24 21:00 12/30/24 07:58 DC Multivitamins Therapeutic (Multivitamin Tablet) 1 tab DAILY PO 12/30/24 09:00 01/29/25 08:59 01/05/25 09:42 1 TAB Pantoprazole Sodium (PROTonix 40MG INJ) 40 mg AM IVP 12/31/24 09:00 01/30/25 08:59 01/05/25 09:43 40 MG Pantoprazole Sodium (PROTonix 40MG TAB) 40 mg AM PO 12/30/24 09:00 12/31/24 02:40 DC Pharmacy Profile Note (Pharmacy Communication) 1 each ONCE MISC 12/31/24 03:00 12/31/24 02:48 DC Tamsulosin HCl (FloMAX) 0.4 mg HS PO 12/30/24 21:00 01/29/25 20:59 01/04/25 21:42 0.4 MG Topiramate (TopaMAX) 25 mg BID PO 12/30/24 09:00 01/29/25 08:59 01/05/25 09:42 25 MG Physical Examination: GENERAL: [No acute distress.] HEAD: [Normal with no signs of head trauma.] EYES: [PERRLA, EOMI, conjunctiva and sclera normal.] ENT: [Hearing grossly intact, normal oropharynx.] NECK: [Supple without JVD. There is no tenderness, lymphadenopathy, or masses. No thyromegaly. Normal carotid upstrokes without bruits.] LUNGS: [Clear breath sounds bilaterally. There are right basilar rales one third of the way up the chest. No wheezes, or rhonchi.] HEART: [Normal rate and rhythm. Normal S1 and S2 without mumurs, gallop or rub.] VASC: [Peripheral pulses +2 bilaterally.] ABD: [Bowel sounds normal, soft, nontender, no masses, no organomegaly. No audible bruits.] : [Not examined] LYMPH: [No lymphadenopathy noted.] EXT: [No clubbing, cyanosis or edema.] SKIN: [No rashes or lesions noted.] NEURO: [Awake, alert, and oriented x3. No focal sensory or strength deficits noted.] Vital Signs (last 8hr) Date Time Temp Pulse Resp B/P (MAP) Pulse Ox O2 Delivery O2 Flow Rate FiO2 01/05/25 12:01 98.1 56 17 106/54 98 Room Air 01/05/25 08:11 98.2 50 17 126/63 97 Room Air 01/05/25 08:00 97 Room Air* 0 21 Laboratory: [ ] Hematology Labs: Test 01/04/25 11:05 Range/Units White Blood Count 13.6 H 4.8-10.8 K/uL Red Blood Count 3.72 L 4.50-6.20 MIL/uL Hemoglobin 11.8 L 14.0-18.0 g/dL Hematocrit 35.5 L 42-54 % Mean Corpuscular Volume 95.4 79-99 fL Mean Corpuscular Hemoglobin 31.7 27.0-33.0 pg Mean Corpuscular Hemoglobin Concent 33.2 32.0-36.0 g/dL Red Cell Distribution Width 13.0 11.0-15.5 % Platelet Count 226 130-400 K/uL Mean Platelet Volume 9.1 7.5-10.5 fL Immature Granulocyte % (Auto) 0.7 0-1 % Neutrophils (%) (Auto) 80.6 H 40.0-77.0 % Lymphocytes (%) (Auto) 10.3 L 21.0-51.0 % Monocytes (%) (Auto) 5.5 3.0-13.0 % Eosinophils (%) (Auto) 2.5 0.0-8.0 % Basophils (%) (Auto) 0.4 0.0-5.0 % Neutrophils # (Auto) 11.0 H 1.8-7.7 K/uL Lymphocytes # (Auto) 1.4 1.0-4.8 K/uL Monocytes # (Auto) 0.8 0.1-1.0 K/uL Eosinophils # (Auto) 0.34 0.00-0.70 K/uL Basophils # (Auto) 0.05 0.00-0.20 K/uL Absolute Immature Granulocyte (auto 0.09 0-1 K/uL Nucleated Red Blood Cells 0.0 0.0-0.19 % Diagnostics / Radiology: [Copy/Paste Echos/Imaging Report here] Impression and Plan: [Fever History of gastric bypass History of CVA, Oropharyngeal dysphagia In need of nutritional support Plan Case discussed with Dr. Retana Negative BC at over 24 hours WBC trending down. Patient afebrile. Will repeat KUB with contrast via peg tube Continue G-tube feedings. Patient will be requiring G-tube feeding longer that 90 days. He is at high risk for aspiration. He will f/u at as outpatient and will be reevaluated as needed. Please provide patient and family member instruction on feeding. Encourage ambulation Aspiration precautions He will be requiring half-way G-tube feeding and nutrition longer than 90 days. Patient is to keep f/u appt at [facility] with Bariatric team. Please call with questions, concerns, and/or change in clinical status. ] KAREN WILSON NP Jan 05, 2025 15:16
[2025-01-06 03:52] VITALS: BP 116/62; PULSE 56; RESP 16; TEMP 97.6
[2025-01-06 08:00] VITALS: O2SAT 95
[2025-01-06 08:04] VITALS: BP 116/69; PULSE 50; RESP 18; TEMP 98
--- NOTE | 2025-01-06 09:37 | NUR ---
PATIENT TOLERATED TUBE FEEDING, PLACEMENT VERIFIED BY GI ASPIRATION AND 20 ML AIR. 100 ML FLUSH WITH WATER BEFORE AND AFTER FEEDING. 4 OZ GIVEB OF 2CAL CAN. (1/2 CAN). NO LEAKING NOTED WITH FEEDING WHEN GIVEN VIA GRAVITY.
--- NOTE | 2025-01-06 09:51 | NUR ---
PATIENT ASKING IF HE CAN HAVE JELLO. STATES THAT HE HAS EATING PUDDING SOMETIMES. PER KATIE, PATIENT ONLY TO BE GIVEN PUDDING, NO JELLO. Addendum: 01/06/25 at 0956 by RADHA SEWELL RN RN Amended: Links added.
[2025-01-06 12:08] VITALS: BP 126/67; PULSE 57; RESP 18; TEMP 98.1
--- NOTE | 2025-01-06 13:35 | NUR ---
Nutritional f/u Note: Chart, meds, and labs Reviewed. Patient tolerated tube feeding, placement verified by gi aspiration and 20 ml air. 100 ml flush with water before and after feeding. 4 oz given of 2cal can. (1/2 can). no leaking noted with feeding when given via gravity, as per nursing. Recommend: two ari formula to better meet pt energy and tolerance needs: TF to provide 1900kcal, 80gm pro/day 664total free h20/day. -H20 flush 100ml h20 flush before and after each feeding. -RD to provide further recommendations based on clinical progress. -Monitor feeding tolerance, %, wt, and labs -If No BM >3days consider bowel stimulant. - Please notify RD if additional nutrition concerns arise. Addendum: 01/06/25 at [address] Amended: Links added.
--- NOTE | 2025-01-06 14:34 | DS ---
Discharge Summary Hospital Course Patient has remained afebrile. VSS. He is tolerating 2cal feeding without any N/v. Abdomen is soft. Peg tube in place with no more leaking. Home care instructions with ER warnings given. Instructed to keep f/u appt at [facility]. He and spouse verbalized understanding and reported they already got a call for the shipment of his nutrition supplements. KAREN WILSON NP Jan 06, 2025 14:34
--- NOTE | 2025-01-06 14:59 | NUR ---
Discharge Planning: Pt.'s peg tube feeding authorized by insurance. Spoke to Richi at [facility]. Feeding will be delivered this afternoon. Asked nurse, Shante, to please give patient feeding for a couple of days just in case it is not received in time. Maris Schwartz made aware. Plan is for d/c home today.
[2025-01-06 16:00] VITALS: BP 127/66; PULSE 57; RESP 18; TEMP 97.8
--- NOTE | 2025-01-06 16:19 | NUR ---
PATIENT DISCHARGED. EDUCATION PROVIDED ON G TUBE FEEDINGS. VERBALIZED UNDERSTANDING. ABDOMINAL BINDER PLACED ON PATIENT. ALL BELONGINGS GATHERED BY PATIENT AND SPOUSE. 8 CANS OF FORMULA PROVIDED TO HAVE ENOUGH THROUGH THE WEEKEND. PER PATIENT, ALREADY GOT CALL THAT FORMULA TO BE DELIVERED AT HOME TODAY. IV REMOVED INTACT. PATIENT AMBULATED DOWN TO PERSONAL VEHICLE ACCOMPANIED BY PCT, ALERT AND ORIENTED X 4.
== END 2025-01-06 16:30 | disposition home or self-care (01) | DRG 57 ==
LOC: DAH 07:29 → INTOOBSV 07:30 → DAHIP 07:30 → OBSVTOIN 07:30 → DAH 07:30 → 3BH 12:45
PROVIDERS: ADMIT Surgery; ATTEND Surgery
PROC: 0DH64UZ Insertion of Feeding Device into Stomach, Percutaneous Endoscopic Approach (ICD-10-PCS; principal; 2024-12-29 09:00)
PROC: 8E0W4CZ Robotic Assisted Procedure of Trunk Region, Percutaneous Endoscopic Approach (ICD-10-PCS; 2024-12-29 09:00)
PROC: 0DJ08ZZ Inspection of Upper Intestinal Tract, Via Natural or Artificial Opening Endoscopic (ICD-10-PCS; 2024-12-29 09:00)
DX: I69.391 Dysphagia following cerebral infarction (principal); R13.12 Dysphagia, oropharyngeal phase; R63.30 Feeding difficulties, unspecified; Z98.84 Bariatric surgery status; Z46.59 Encounter for fitting and adjustment of other gastrointestinal appliance and device
CPT/HCPCS: 36415; 43235; 71045; 74018; 80048; 80053; 81001; 85025; 85610; 85730; 86850; 86900; 86901; 87040; 93005; G0378; J0330; J0461; J1100; J1650; J1885; J2003; J2371; J2405; J2470; J2704; J2710; J3010; J3490; J7030; J7120; Q9963; A4215; A4216; A4221; A4222; A4223; A4600; A4663; A4930; A6260; B4088; J0665